=== PATIENT | male | born 1970 | race Caucasian/White ===

== ENCOUNTER → 2016-10-03 | Outpatient (CLI) | payer OTHER, MEDICAID ==
[~2016-10-03] MED LIST: CLAR10CA3 PO; PRIL40CA PO; PROA1AER INH; SYMB16INH INH; VITA200016 PO
[2016-10-03 11:03] LABS: ALBUMIN 3.6 GM/DL (3.2-5.2); ALBUMIN/GLOBULIN RATIO 1.38 (1.00-1.93); ALKALINE PHOSPHATASE 54 U/L (45-117); ALT/SGPT 28 U/L (12-78); ANION GAP 5 MEQ/L (8-16); AST/SGOT 17 U/L (15-37); BILIRUBIN,TOTAL 0.4 MG/DL (0.2-1.0); BLOOD UREA NITROGEN 12 MG/DL (7-18); CALCIUM LEVEL 8.8 MG/DL (8.5-10.1); CARBON DIOXIDE LEVEL 32 MEQ/L (21-32); CHLORIDE LEVEL 106 MEQ/L (98-107); CHOLESTEROL LEVEL 191 MG/DL (<200); CREATININE FOR GFR 0.96 MG/DL (0.70-1.30); GLOMERULAR FILTRATION RATE > 60.0 (>60); GLUCOSE, FASTING 122 MG/DL (70-105); POTASSIUM SERUM 4.3 MEQ/L (3.5-5.1); SODIUM LEVEL 143 MEQ/L (136-145); TOTAL PROTEIN 6.2 GM/DL (6.4-8.2); TRIGLYCERIDES LEVEL 110 MG/DL (<150)
== END ==
LOC: M LAB 09:48
PROVIDERS: ATTEND Student in an Organized Health Care Education/Training Program
DX: Z00.00 Encounter for general adult medical examination without abnormal findings (principal)

== ENCOUNTER 2017-01-12 16:26 | Emergency (ER) | payer MEDICAID, OTHER ==
[~2017-01-12] VITALS: Ht 172.7 cm; Wt 77.2 kg
[~2017-01-12 16:26] MED LIST changes: -PROA1AER INH; +PROAAER10 INH
[2017-01-12 17:21] LABS: BASO % 0.5 % (0.0-1.0); EOS # 0.3 K/mm3 (0.0-0.50); EOS % 3.3 % (0.0-3.0); LARGE UNSTAINED CELL # 0.2 K/mm3 (0.0-0.4); LARGE UNSTAINED CELL % 1.7 % (0.0-4.0); LYMPH # 3.5 K/mm3 (1.5-4.5); LYMPH % 36.3 % (24.0-44.0); MEAN CORPUSCULAR HEMOGLOBIN 33.9 pg (27.0-33.0); MEAN CORPUSCULAR VOLUME 91.2 fl (80.0-96.0); MONO # 0.5 K/mm3 (0.0-0.8); MONO % 4.8 % (0.0-5.0); NEUTROPHILS # 5.1 K/mm3 (1.8-7.7); NEUTROPHILS % 53.4 % (36.0-66.0); PLATELET COUNT, AUTOMATED 332 k/mm3 (150-450); WHITE BLOOD COUNT 9.5 K/mm3 (4.0-10.0)
[2017-01-12 17:24] LABS: MEAN CORPUSCULAR HGB CONC 35.4 g/dl (32.0-36.5)
[2017-01-12 17:50] LABS: ANION GAP 6 MEQ/L (8-16); BLOOD UREA NITROGEN 19 MG/DL (7-18); CALCIUM LEVEL 8.3 MG/DL (8.5-10.1); CARBON DIOXIDE LEVEL 31 MEQ/L (21-32); CHLORIDE LEVEL 104 MEQ/L (98-107); CREATININE FOR GFR 1.05 MG/DL (0.70-1.30); GLOMERULAR FILTRATION RATE > 60.0 (>60); GLUCOSE, FASTING 108 MG/DL (70-105); POTASSIUM SERUM 3.9 MEQ/L (3.5-5.1); SODIUM LEVEL 141 MEQ/L (136-145)
--- NOTE | 2017-01-12 17:51 | REP ---
Clinical: Chest pain . Comparison: 05/15/2016 . Findings: The mediastinum and cardiac silhouette are stable and within normal limits for portable technique. The lung isaacs are clear without acute consolidation, effusion, or pneumothorax. Skeletal structures are intact. Impression: No acute cardiopulmonary process appreciated. Signed by Cesar Townsend MD 01/12/2017 05:42 P
[2017-01-12] MEDS ORDERED: PANTOPRAZOLE 40MG INJ (PROTONIX) (C9113) IV ONE (18:00)
[2017-01-12] MEDS ORDERED: ASPIRIN 325 MG TAB PO ONE (18:00)
[2017-01-12] MEDS ORDERED: GI COCKTAIL 50ML BTL(HYOSCYAMINE/MAALOX/LIDOCAINE VISCOUS)(1:3:1) PO ONE (18:00)
[2017-01-12 18:16] LABS: ALBUMIN 3.4 GM/DL (3.2-5.2); ALKALINE PHOSPHATASE 58 U/L (45-117); ALT/SGPT 33 U/L (12-78); AST/SGOT 26 U/L (15-37); BILIRUBIN,DIRECT < 0.1 MG/DL (0.0-0.2); BILIRUBIN,TOTAL 0.4 MG/DL (0.2-1.0); TOTAL PROTEIN 6.5 GM/DL (6.4-8.2)
[2017-01-12 21:09] VITALS: BP 122/72
--- NOTE | 2017-01-13 07:32 | ECGEPIP ---
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
== END 2017-01-12 21:28 | disposition home or self-care (01) ==
LOC: M ED 16:26
DX: K21.9 Gastro-esophageal reflux disease without esophagitis (principal); J45.909 Unspecified asthma, uncomplicated; G47.33 Obstructive sleep apnea (adult) (pediatric); F32.9 Major depressive disorder, single episode, unspecified; Z87.891 Personal history of nicotine dependence

== ENCOUNTER 2017-02-06 18:57 | Emergency (ER) | payer OTHER ==
[~2017-02-06] VITALS: Ht 170.2 cm; Wt 77.3 kg
[2017-02-06] MEDS ORDERED: FLUO10CA8 PO (19:26)
[2017-02-06 21:34] VITALS: BP 141/72
--- NOTE | 2017-02-07 08:10 | REP ---
REASON: Trauma. PRIORS: None. Only Two views were obtained. The hand series consists of 4 views. If there has been trauma, a two view examination can not rule out a fracture. Limited AP and lateral views of the hand show no gross fracture. Signed by Jose Cruz Vincent DO 02/07/2017 10:37 A
== END 2017-02-06 21:34 | disposition home or self-care (01) ==
LOC: M ED 20:26
DX: S60.222A Contusion of left hand, initial encounter (principal); Z87.891 Personal history of nicotine dependence; W20.8XXA Other cause of strike by thrown, projected or falling object, initial encounter; Y92.099 Unspecified place in other non-institutional residence as the place of occurrence of the external cause; Y93.89 Activity, other specified; Y99.9 Unspecified external cause status

== ENCOUNTER 2017-04-09 14:37 | Emergency (ER) | payer MEDICAID, OTHER ==
[~2017-04-09] VITALS: Ht 172.7 cm; Wt 77.3 kg
[~2017-04-09 14:37] MED LIST changes: +FLUO10CA8 PO
[2017-04-09 14:38] VITALS: BP 153/87
--- NOTE | 2017-04-09 17:16 | REP ---
CT Head without contrast HISTORY: Trauma COMPARISON: None There is no intraparenchymal hemorrhage, acute infarct, mass or midline shift. The ventricular system is normal in appearance. There is no extra cerebral collection. There is no fracture. The visualized sinuses are clear. IMPRESSION: There is no intracranial lesion. Signed by Eren Handley MD 04/09/2017 05:08 P
[2017-04-09] MEDS ORDERED: POLYSPORIN TOPICAL OINTMENT 15GM As Ordered ONE (17:28)
[2017-04-09] MEDS ORDERED: POLYSPORIN TOPICAL OINTMENT 15GM TOP ONE (17:30)
== END 2017-04-09 17:41 | disposition home or self-care (01) ==
LOC: M ED 14:37
DX: S01.01XA Laceration without foreign body of scalp, initial encounter (principal); Z87.891 Personal history of nicotine dependence; W20.8XXA Other cause of strike by thrown, projected or falling object, initial encounter; Y92.096 Garden or yard of other non-institutional residence as the place of occurrence of the external cause; Y93.89 Activity, other specified; Y99.9 Unspecified external cause status

== ENCOUNTER → 2017-09-21 | Outpatient (REF) | payer OTHER | LOC: M SFHCPLAZ 15:17 | DX: J02.9 Acute pharyngitis, unspecified (principal) ==

== ENCOUNTER → 2017-09-30 | Outpatient (CLI) | payer OTHER | LOC: M LRY 11:30 | DX: J45.901 Unspecified asthma with (acute) exacerbation (principal) | CPT/HCPCS: 71046 ==

== ENCOUNTER → 2017-12-26 | Outpatient (CLI) | payer OTHER | LOC: M LRY 17:34 | DX: M43.6 Torticollis (principal); M50.30 Other cervical disc degeneration, unspecified cervical region | CPT/HCPCS: 72052 ==

== ENCOUNTER 2018-03-19 08:44 | Emergency (ER) | payer OTHER | END 2018-03-19 09:58 | disposition home or self-care (01) | LOC: M ED 08:44 | DX: M54.5 Low back pain (principal); J45.909 Unspecified asthma, uncomplicated; Z87.891 Personal history of nicotine dependence; Z79.899 Other long term (current) drug therapy | CPT/HCPCS: 99282 ==

== ENCOUNTER 2018-03-19 18:02 | Emergency (ER) | payer OTHER | END 2018-03-19 21:02 | disposition home or self-care (01) | LOC: M ED 18:02 | DX: M54.5 Low back pain (principal); J45.909 Unspecified asthma, uncomplicated; K21.9 Gastro-esophageal reflux disease without esophagitis; F17.200 Nicotine dependence, unspecified, uncomplicated | CPT/HCPCS: 99281 ==

== ENCOUNTER 2018-04-22 08:41 | Outpatient (RCR) | payer OTHER | END 2018-05-12 | LOC: M PT 08:41 | DX: M54.5 Low back pain (principal) | CPT/HCPCS: 97110 ==

== ENCOUNTER → 2019-05-20 | Outpatient (CLI) | payer OTHER ==
[~2019-05-20] MED LIST changes: +ROBA500T PO; +TYLE650T35 PO
== END ==
LOC: M LAB 12:35
PROVIDERS: ATTEND Student in an Organized Health Care Education/Training Program
DX: Z12.31 Encounter for screening mammogram for malignant neoplasm of breast (principal)

== ENCOUNTER 2019-11-10 11:03 | Emergency (ER) | payer MEDICAID, OTHER ==
[~2019-11-10] VITALS: Ht 170.2 cm; Wt 88.6 kg
[~2019-11-10 11:03] MED LIST changes: +FLUO10CA15 PO; -FLUO10CA8 PO
[2019-11-10] MEDS ORDERED: AZEL1SPR3 (11:13)
[2019-11-10] MEDS ORDERED: BUSP1TAB (11:13)
[2019-11-10] MEDS ORDERED: VENL75CA47 (11:13)
[2019-11-10] MEDS ORDERED: OMEP-221 (11:13)
[2019-11-10] MEDS ORDERED: CITA20TA6 (11:13)
[2019-11-10] MEDS ORDERED: ALL10TAB29 (11:13)
[2019-11-10] MEDS ORDERED: PROZ20CA11 (11:13)
[2019-11-10] MEDS ORDERED: COMBIVENT RESPIMAT 100-20MCG INHALER 4GM INH ONE (11:45)
[2019-11-10] MEDS ORDERED: methylPREDNISolone INJ 125 MG/2 ML VIAL (J2930) IV ONE (11:45)
[2019-11-10 12:24] LABS: BASO % 0.2 % (0.0-1.0); EOS % 0.2 % (0.0-3.0); HEMATOCRIT 45.3 % (42.0-52.0); HEMOGLOBIN 15.2 g/dl (13.5-17.5); LYMPH % 21.4 % (24.0-44.0); MEAN CORPUSCULAR HEMOGLOBIN 30.7 pg (27.0-33.0); MEAN CORPUSCULAR HGB CONC 33.6 g/dl (32.0-36.5); MEAN CORPUSCULAR VOLUME 91.5 fl (80.0-96.0); MONO # 0.5 10^3/uL (0.0-0.8); MONO % 5.5 % (0.0-5.0); NEUTROPHILS # 6.7 10^3/uL (1.5-8.5); NEUTROPHILS % 72.2 % (36.0-66.0); PLATELET COUNT, AUTOMATED 343 10^3/uL (150-450); RED BLOOD COUNT 4.95 10^6/uL (4.30-6.10); WHITE BLOOD COUNT 9.3 10^3/uL (4.0-10.0)
[2019-11-10 12:35] LABS: INR 0.97; PROTHROMBIN TIME 12.5 SECONDS (11.8-14.0)
[2019-11-10 13:06] LABS: ALBUMIN 3.9 GM/DL (3.2-5.2); ALT/SGPT 31 U/L (12-78); BILIRUBIN,DIRECT 0.1 MG/DL (0.0-0.2); BILIRUBIN,TOTAL 0.8 MG/DL (0.2-1.0); BLOOD UREA NITROGEN 13 MG/DL (7-18); CALCIUM LEVEL 9.6 MG/DL (8.5-10.1); CARBON DIOXIDE LEVEL 27 MEQ/L (21-32); CHLORIDE LEVEL 103 MEQ/L (98-107); CK-MB VALUE MASS < 1.0 NG/ML (<3.6); CPK CREATINE PHOSPHOKINASE 177 U/L (39-308); CREATININE FOR GFR 0.84 MG/DL (0.70-1.30); GLOMERULAR FILTRATION RATE > 60.0 (>60); GLUCOSE, FASTING 119 MG/DL (70-100); MB/CK RELATIVE INDEX 0.56 (< OR =4); POTASSIUM SERUM 4.5 MEQ/L (3.5-5.1); SODIUM LEVEL 137 MEQ/L (136-145); TOTAL PROTEIN 7.3 GM/DL (6.4-8.2); TROPONIN I < 0.02 NG/ML (< 0.10)
[2019-11-10 13:39] LABS: D-DIMER QUANT < 270.0 ng/ml (<500)
[2019-11-10] MEDS ORDERED: PRED20TA PO (13:51)
--- NOTE | 2019-11-10 13:54 | REP ---
CHEST, SINGLE VIEW: There is no evidence of acute infiltrate. No pleural effusion is seen. The heart is normal in size. The mediastinal silhouette is unremarkable. The visualized osseous structures are intact. IMPRESSION: No acute pulmonary disease. Electronically Signed by Rodolfo Haddad MD 11/10/2019 02:43 P
[2019-11-10 14:00] VITALS: BP 137/59
--- NOTE | 2019-11-11 01:55 | ECGEPIP ---
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
== END 2019-11-10 14:09 | disposition home or self-care (01) ==
LOC: M ED 11:03
DX: J45.901 Unspecified asthma with (acute) exacerbation (principal); K21.9 Gastro-esophageal reflux disease without esophagitis; F41.9 Anxiety disorder, unspecified; M54.9 Dorsalgia, unspecified; Z79.899 Other long term (current) drug therapy
CPT/HCPCS: 71045; 80048; 80076; 82550; 82553; 85025; 85379; 85610; 87486; 87581; 87633; 87798; 93005; 96374; 99284; J2930; U0002

== ENCOUNTER → 2019-12-01 | Outpatient (CLI) | payer OTHER ==
[~2019-12-01] MED LIST changes: +ALL10TAB29; +AZEL1SPR3; +BUSP1TAB; +CITA20TA6; +OMEP-221; +PRED20TA PO; +PROZ20CA11; +VENL75CA47
[2019-12-01 09:08] LABS: APPEARANCE, URINE CLEAR (CLEAR); BACTERIA, URINE AUTO NEGATIVE (NEGATIVE); BILIRUBIN, URINE AUTO NEGATIVE (NEGATIVE); BLOOD, URINE BLOOD NEGATIVE (NEGATIVE); COLOR, URINE YELLOW (YELLOW); GLUCOSE, URINE (UA) AUTO 1+ mg/dL (NEGATIVE); KETONE, URINE AUTO NEGATIVE (NEGATIVE); LEUKOCYTE ESTERASE, URINE AUTO NEGATIVE (NEGATIVE); MUCUS, URINE SMALL (NEGATIVE); NITRITE, URINE AUTO NEGATIVE (NEGATIVE); PROTEIN, URINE AUTO NEGATIVE (NEGATIVE); RBC, URINE AUTO 0 /HPF (0-3); SQUAMOUS EPITHELIAL CELL UR AU 0 /HPF (0-6); UROBILINOGEN, URINE AUTO 0.2 mg/dL (0.0-2.0); WBC, URINE AUTO 0 /HPF (0-3)
[2019-12-01 09:34] LABS: ALBUMIN 3.6 GM/DL (3.2-5.2); ALT/SGPT 36 U/L (12-78); BILIRUBIN,TOTAL 0.3 MG/DL (0.2-1.0); BLOOD UREA NITROGEN 16 MG/DL (7-18); CALCIUM LEVEL 9.1 MG/DL (8.5-10.1); CARBON DIOXIDE LEVEL 29 MEQ/L (21-32); CHLORIDE LEVEL 107 MEQ/L (98-107); CHOLESTEROL LEVEL 199 MG/DL (<200); CREATININE FOR GFR 0.97 MG/DL (0.70-1.30); GLOMERULAR FILTRATION RATE > 60.0 (>60); GLUCOSE, FASTING 53 MG/DL (70-100); GLUCOSE,RANDOM 53 MG/DL (LESS THAN 200); HDL CHOLESTEROL 50 MG/DL (>40); LDL CHOLESTEROL 101 MG/DL (<100); NON-HDL-C 149 MG/DL; POTASSIUM SERUM 3.7 MEQ/L (3.5-5.1); SODIUM LEVEL 143 MEQ/L (136-145); TOTAL PROTEIN 6.7 GM/DL (6.4-8.2); TRIGLYCERIDES LEVEL 240 MG/DL (<150)
[2019-12-02 11:04] LABS: HEPATITIS B SURFACE ANTIBODY NEGATIVE (POSITIVE)
[2019-12-02 11:16] LABS: HEPATITIS B SURFACE ANTIGEN NEGATIVE (NEGATIVE)
[2019-12-02 12:03] LABS: HIV 1&2 SCREEN CENTAUR NEGATIVE (NEGATIVE)
[2019-12-02 14:09] LABS: HEPATITIS A IgG TOTAL Negative (Negative); HEPATITIS B CORE ANTIBODY IGG Negative (Negative); TESTOSTERONE FREE (DIRECT) 4.6 pg/mL (6.8-21.5)
== END ==
LOC: M LAB 08:28
PROVIDERS: ATTEND Student in an Organized Health Care Education/Training Program
DX: N52.8 Other male erectile dysfunction (principal); Z72.51 High risk heterosexual behavior; Z20.6 Contact with and (suspected) exposure to human immunodeficiency virus [HIV]

== ENCOUNTER 2019-12-02 19:35 | Emergency (ER) | payer OTHER ==
[~2019-12-02] VITALS: Ht 172.7 cm; Wt 81.8 kg
--- NOTE | 2019-12-02 21:24 | REPVR ---
PROCEDURE INFORMATION: Exam: CT Head Without Contrast Exam date and time: 12/02/2019 8:59 PM Age: 49 years old Clinical indication: Dizziness TECHNIQUE: Imaging protocol: Computed tomography of the head without contrast. Radiation optimization: All CT scans at this facility use at least one of these dose optimization techniques: automated exposure control; mA and/or kV adjustment per patient size (includes targeted exams where dose is matched to clinical indication); or iterative reconstruction. COMPARISON: CT Head without contrast 04/09/2017 4:33 PM FINDINGS: Brain: Changes of chronic white matter microvascular disease have progressed since the prior exam. No hemorrhage or signs of a recent infarct. No mass effect. Ventricles: Normal. No ventriculomegaly. Bones/joints: Unremarkable. No acute fracture. Sinuses: Visualized sinuses are unremarkable. No fluid levels. Mastoid air cells: Visualized mastoid air cells are well aerated. Soft tissues: Unremarkable. IMPRESSION: No acute intracranial abnormality. Electronically signed by: Diaz Cota On 12/02/2019 21:24:51 PM
[2019-12-02 21:34] LABS: BASO % 0.3 % (0.0-1.0); EOS # 0.3 10^3/uL (0.0-0.5); EOS % 3.2 % (0.0-3.0); HEMATOCRIT 41.7 % (42.0-52.0); LYMPH # 2.9 10^3/uL (1.5-5.0); LYMPH % 33.5 % (24.0-44.0); MEAN CORPUSCULAR HEMOGLOBIN 31.1 pg (27.0-33.0); MEAN CORPUSCULAR HGB CONC 33.6 g/dl (32.0-36.5); MEAN CORPUSCULAR VOLUME 92.7 fl (80.0-96.0); MONO # 0.7 10^3/uL (0.0-0.8); MONO % 7.8 % (0.0-5.0); NEUTROPHILS # 4.8 10^3/uL (1.5-8.5); NEUTROPHILS % 54.5 % (36.0-66.0); PLATELET COUNT, AUTOMATED 316 10^3/uL (150-450); WHITE BLOOD COUNT 8.7 10^3/uL (4.0-10.0)
[2019-12-02 21:54] LABS: HEMOGLOBIN A1c 5.8 %
[2019-12-02 22:04] LABS: ALBUMIN 3.5 GM/DL (3.2-5.2); ALT/SGPT 33 U/L (12-78); BILIRUBIN,DIRECT 0.1 MG/DL (0.0-0.2); BILIRUBIN,TOTAL 0.3 MG/DL (0.2-1.0); CK-MB VALUE MASS 1.8 NG/ML (<3.6); CPK CREATINE PHOSPHOKINASE 162 U/L (39-308); FREE T4 1.11 NG/DL (0.76-1.46); LIPASE 130 U/L (73-393); MB/CK RELATIVE INDEX 1.11 (< OR =4); TOTAL PROTEIN 6.7 GM/DL (6.4-8.2); TROPONIN I < 0.02 NG/ML (< 0.10)
[2019-12-03] MEDS: POTASSIUM CHLORIDE 10 MEQ SR TABLET PO ONE (00:33)
[2019-12-03 00:36] VITALS: BP 123/81
--- NOTE | 2019-12-03 12:55 | ECGEPIP ---
[facility] - ED Test Date: 2019-12-02 Pat Name: FELTON MAGUIRE Department: Room: - Gender: Male Rn Procedure: TYRON : 1970 Requested By: JENISE ANN PA-C Order Number: [id number] Reading MD: Beena Chan Measurements Intervals [place] Rate: 89 P: 46 [place]: 172 QRS: 59 QRSD: 91 T: 35 QT: 362 QTc: 441 Interpretive Statements SINUS RHYTHM NONSPECIFIC T-WAVE ABNORMALITY DECREASED RATE 11/10/19 Electronically Signed on 12-03-2019 12:55:16 EDT by Beena Chan
== END 2019-12-03 00:38 | disposition home or self-care (01) ==
LOC: M ED 19:35
DX: R42 Dizziness and giddiness (principal); E87.6 Hypokalemia; J45.909 Unspecified asthma, uncomplicated; K21.9 Gastro-esophageal reflux disease without esophagitis; M54.9 Dorsalgia, unspecified; F41.9 Anxiety disorder, unspecified; F32.9 Major depressive disorder, single episode, unspecified

== ENCOUNTER → 2019-12-09 | Outpatient (CLI) | payer OTHER ==
[2019-12-09 15:21] LABS: FOLATE 23.7 NG/ML
[2019-12-16 11:07] LABS: LEAD BLOOD ADULT 1 ug/dL (0-4)
== END ==
LOC: M LAB 14:13
PROVIDERS: ATTEND Student in an Organized Health Care Education/Training Program
DX: R20.2 Paresthesia of skin (principal)

== ENCOUNTER → 2019-12-10 | Outpatient (CLI) | payer OTHER | LOC: M LAB 09:45 ==

== ENCOUNTER → 2019-12-22 | Outpatient (CLI) | payer OTHER ==
[2019-12-22 14:52] LABS: FOLATE > 24.0 NG/ML; VITAMIN B12 LEVEL 436 PG/ML
[2019-12-28 08:09] LABS: LEAD BLOOD ADULT <1 ug/dL (0-4)
== END ==
LOC: M LAB 12:55
DX: R20.2 Paresthesia of skin (principal); E87.6 Hypokalemia

== ENCOUNTER → 2019-12-23 | Outpatient (CLI) | payer OTHER | LOC: M LAB 06:40 | DX: R20.2 Paresthesia of skin (principal); E87.6 Hypokalemia ==

== ENCOUNTER → 2020-01-18 | Outpatient (REF) | payer OTHER ==
[~2020-01-18] MED LIST changes: +ACET650T61 PO; -ALL10TAB29; +CETI-24; -FLUO10CA15 PO; +FLUO10CA16 PO; -TYLE650T35 PO
[2020-01-18 13:34] LABS: BLOOD UREA NITROGEN 14 MG/DL (7-18); CALCIUM LEVEL 9.4 MG/DL (8.5-10.1); CARBON DIOXIDE LEVEL 31 MEQ/L (21-32); CHLORIDE LEVEL 105 MEQ/L (98-107); GLOMERULAR FILTRATION RATE > 60.0 (>60); GLUCOSE, FASTING 94 MG/DL (70-100); POTASSIUM SERUM 4.5 MEQ/L (3.5-5.1); SODIUM LEVEL 140 MEQ/L (136-145)
[2020-01-18 13:47] LABS: FOLLICLE STIMULATING HORMONE 6.6 mIU/mL (1.4-18.1); LUTEINIZING HORMONE 5.2 mIU/mL (1.5-9.3)
[2020-01-18 16:07] LABS: CHLAMYDIA DNA AMPLIFICATION NEGATIVE (NEGATIVE); GC DNA AMPLIFICATION NEGATIVE (NEGATIVE)
[2020-01-22 03:07] LABS: CHLAMYDIA PHARYNGEAL APTIMA Negative (Negative); GC PHARYNGEAL APTIMA Negative (Negative)
[2020-01-22 04:06] LABS: CHLAMYDIA RECTAL APTIMA Negative (Negative); GC RECTAL APTIMA Negative (Negative)
== END ==
LOC: M SFHCPLAZ 10:06
PROVIDERS: ATTEND Family Medicine
DX: E87.6 Hypokalemia (principal); E29.1 Testicular hypofunction; Z72.51 High risk heterosexual behavior

== ENCOUNTER → 2020-01-25 | Outpatient (CLI) | payer OTHER ==
[2020-01-25 16:44] LABS: CORTISOL AM 3.2 UG/DL (4.3-22.4); PROLACTIN 6.7 NG/ML (2.1-17.7)
[2020-01-28 05:07] LABS: TESTOSTERONE FREE (DIRECT) 3.1 pg/mL (6.8-21.5); TRANSFERRIN 280 mg/dL (177-329)
== END ==
LOC: M LAB 15:41
PROVIDERS: ATTEND Student in an Organized Health Care Education/Training Program
DX: E29.1 Testicular hypofunction (principal)

== ENCOUNTER → 2020-02-08 | Outpatient (REF) | payer OTHER | LOC: M SFHCPLAZ 10:48 | PROVIDERS: ATTEND Student in an Organized Health Care Education/Training Program | DX: E87.6 Hypokalemia (principal) ==

== ENCOUNTER → 2020-03-20 | Outpatient (REF) | payer OTHER ==
[2020-03-20 13:08] LABS: ALBUMIN 3.7 GM/DL (3.2-5.2); ALT/SGPT 28 U/L (12-78); BILIRUBIN,TOTAL 0.3 MG/DL (0.2-1.0); BLOOD UREA NITROGEN 15 MG/DL (7-18); CARBON DIOXIDE LEVEL 30 MEQ/L (21-32); CHLORIDE LEVEL 106 MEQ/L (98-107); CREATININE FOR GFR 1.01 MG/DL (0.70-1.30); GLOMERULAR FILTRATION RATE > 60.0 (>60); GLUCOSE, FASTING 102 MG/DL (70-100); POTASSIUM SERUM 4.6 MEQ/L (3.5-5.1); SODIUM LEVEL 140 MEQ/L (136-145); TOTAL PROTEIN 6.8 GM/DL (6.4-8.2)
[2020-03-20 13:18] LABS: HEPATITIS B SURFACE ANTIBODY POSITIVE (POSITIVE)
[2020-03-20 13:56] LABS: HIV 1&2 SCREEN CENTAUR NEGATIVE (NEGATIVE)
[2020-03-20 15:27] LABS: CHLAMYDIA DNA AMPLIFICATION NEGATIVE (NEGATIVE); GC DNA AMPLIFICATION NEGATIVE (NEGATIVE)
[2020-03-22 01:07] LABS: CHLAMYDIA PHARYNGEAL APTIMA Negative (Negative); GC PHARYNGEAL APTIMA Negative (Negative)
[2020-03-23 03:07] LABS: CHLAMYDIA RECTAL APTIMA Negative (Negative); GC RECTAL APTIMA Negative (Negative)
== END ==
LOC: M PLALAB 08:47
PROVIDERS: ATTEND Internal Medicine Infectious Disease
DX: Z11.3 Encounter for screening for infections with a predominantly sexual mode of transmission (principal)

== ENCOUNTER → 2020-07-19 | Outpatient (CLI) | payer OTHER | LOC: M LABSMTC 13:42 | PROVIDERS: ATTEND Pediatrics | DX: Z20.822 Contact with and (suspected) exposure to COVID-19 (principal) ==

== ENCOUNTER → 2020-08-09 | Outpatient (REF) | payer OTHER ==
[2020-08-09 15:33] LABS: HEMOGLOBIN A1c 5.7 %
[2020-08-09 15:55] LABS: CORTISOL AM 4.5 UG/DL (4.3-22.4)
== END ==
LOC: M PLALAB 14:10
PROVIDERS: ATTEND Student in an Organized Health Care Education/Training Program
DX: R53.82 Chronic fatigue, unspecified (principal); R20.0 Anesthesia of skin

== ENCOUNTER → 2020-09-07 | Outpatient (CLI) | payer OTHER ==
--- NOTE | 2020-09-07 14:56 | REP ---
INDICATION: PAIN ANTERIOR SHOULDER. COMPARISON: None. TECHNIQUE: Three views of the right shoulder are presented. FINDINGS: The right glenohumeral and acromioclavicular joints are normally aligned. There is periarticular soft tissue calcification along the inferior aspect of the glenoid and adjacent to the proximal humerus consistent with calcific tendinitis or bursitis changes. No erosive changes seen. No fracture is noted. IMPRESSION: Periarticular soft tissue calcifications noted in several locations consistent with calcific tendinitis or bursitis. Otherwise negative. <Electronically signed by Rigo Duarte > 09/07/20 [id number]
== END ==
LOC: M WUC 14:33
PROVIDERS: ATTEND Nurse Practitioner Family
DX: M25.511 Pain in right shoulder (principal)

== ENCOUNTER → 2020-09-14 | Outpatient (CLI) | payer OTHER ==
--- NOTE | 2020-09-14 12:35 | REP ---
INDICATION: ANESTHESIA OF SKIN COMPARISON: 07/29/2015 TECHNIQUE: AP, lateral, bilateral oblique, and coned-down views of the lumbar spine. FINDINGS: Alignment and lordosis maintained. Vertebral bodies are intact. No acute fracture/compression injury or subluxation. No obvious spondylolysis or spondylolisthesis. Moderate/early advanced multilevel degenerative changes include endplate sclerosis, minimal disc space narrowing, osteophytosis and mild facet hypertrophy. IMPRESSION: Moderate/early advanced multilevel degenerative spondylosis. No acute fracture/compression injury or subluxation. Findings are relatively similar to prior examination. <Electronically signed by Cesar Townsend > 09/14/20 [id number]
== END ==
LOC: M RAD 11:53
PROVIDERS: ATTEND Student in an Organized Health Care Education/Training Program
DX: R20.0 Anesthesia of skin (principal); M51.9 Unspecified thoracic, thoracolumbar and lumbosacral intervertebral disc disorder

== ENCOUNTER 2020-10-26 19:40 | Emergency (ER) | payer OTHER ==
[~2020-10-26] VITALS: Ht 167.6 cm; Wt 92.0 kg
[2020-10-26] MEDS ORDERED: LEVO750T14 PO (19:52)
--- NOTE | 2020-10-26 21:40 | REPVR ---
PROCEDURE INFORMATION: Exam: XR Chest Exam date and time: 10/26/2020 9:23 PM Age: 50 years old Clinical indication: Cough and dyspnea; Additional info: Dyspnea/cough TECHNIQUE: Imaging protocol: XR of the chest. Views: 1 view. COMPARISON: NM PORTABLE CHEST X-RAY 11/10/2019 12:11 PM FINDINGS: Lungs: Unremarkable. No consolidation. Pleural spaces: Unremarkable. No pleural effusion. No pneumothorax. Heart/Mediastinum: Unremarkable. No cardiomegaly. Bones/joints: The spine demonstrates mild degenerative changes. IMPRESSION: No acute findings. Electronically signed by: Josue Wayne On 10/26/2020 21:40:42 PM
[2020-10-26 22:03] LABS: BASO # 0.1 10^3/uL (0.0-0.2); BASO % 0.4 % (0.0-1.0); EOS # 0.4 10^3/uL (0.0-0.5); EOS % 3.3 % (0.0-3.0); HEMATOCRIT 49.1 % (42.0-52.0); HEMOGLOBIN 16.7 g/dl (13.5-17.5); LYMPH # 3.7 10^3/uL (1.5-5.0); LYMPH % 33.5 % (24.0-44.0); MEAN CORPUSCULAR HEMOGLOBIN 32.2 pg (27.0-33.0); MEAN CORPUSCULAR VOLUME 94.6 fl (80.0-96.0); MONO # 0.8 10^3/uL (0.0-0.8); MONO % 6.7 % (2.0-8.0); NEUTROPHILS # 6.1 10^3/uL (1.5-8.5); NEUTROPHILS % 54.8 % (36.0-66.0); PLATELET COUNT, AUTOMATED 325 10^3/uL (150-450); RED BLOOD COUNT 5.19 10^6/uL (4.30-6.10); WHITE BLOOD COUNT 11.1 10^3/uL (4.0-10.0)
[2020-10-26 22:22] LABS: ALBUMIN 3.6 GM/DL (3.2-5.2); ALT/SGPT 28 U/L (12-78); BILIRUBIN,DIRECT 0.1 MG/DL (0.0-0.2); BILIRUBIN,TOTAL 0.5 MG/DL (0.2-1.0); BLOOD UREA NITROGEN 12 MG/DL (7-18); CALCIUM LEVEL 9.4 MG/DL (8.5-10.1); CARBON DIOXIDE LEVEL 32 MEQ/L (21-32); CHLORIDE LEVEL 102 MEQ/L (98-107); CREATININE FOR GFR 1.09 MG/DL (0.70-1.30); GLOMERULAR FILTRATION RATE > 60.0 (>56); GLUCOSE, FASTING 101 MG/DL (70-100); POTASSIUM SERUM 3.7 MEQ/L (3.5-5.1); SODIUM LEVEL 138 MEQ/L (136-145); TOTAL PROTEIN 6.8 GM/DL (6.4-8.2)
[2020-10-26 22:30] VITALS: BP 116/75
--- NOTE | 2020-10-29 09:09 | ECGEPIP ---
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
== END 2020-10-26 22:42 | disposition home or self-care (01) ==
LOC: M ED 19:40
DX: J06.9 Acute upper respiratory infection, unspecified (principal); J45.909 Unspecified asthma, uncomplicated; Z79.899 Other long term (current) drug therapy; F17.210 Nicotine dependence, cigarettes, uncomplicated

== ENCOUNTER 2021-02-20 12:42 | Emergency (ER) | payer OTHER ==
[~2021-02-20] VITALS: Ht 162.6 cm; Wt 87.6 kg
[~2021-02-20 12:42] MED LIST changes: +LEVO750T14 PO
[2021-02-20 12:49] VITALS: BP 108/64
== END 2021-02-20 15:06 | disposition left against medical advice (07) ==
LOC: M ED 12:42
DX: Z53.21 Procedure and treatment not carried out due to patient leaving prior to being seen by health care provider (principal)

== ENCOUNTER 2021-02-28 14:07 | Emergency (ER) | payer OTHER ==
[~2021-02-28] VITALS: Ht 162.6 cm; Wt 88.2 kg
[2021-02-28 17:20] LABS: AMPHETAMINES LEVEL URINE NEGATIVE (NEGATIVE); BARBITURATES URINE NEGATIVE (NEGATIVE); BENZODIAZEPINES URINE NEGATIVE (NEGATIVE); CANNABINOIDS URINE POSITIVE (NEGATIVE); COCAINE METABOLITE URINE NEGATIVE (NEGATIVE); METHADONE URINE NEGATIVE (NEGATIVE); OPIATES URINE NEGATIVE (NEGATIVE); PHENCYCLIDINE URINE NEGATIVE (NEGATIVE)
--- NOTE | 2021-02-28 20:42 | REPVR ---
PROCEDURE INFORMATION: Exam: MR Head Without Contrast Exam date and time: 02/28/2021 7:47 PM Age: 50 years old Clinical indication: Altered mental status/memory loss; Additional info: Confusion, amnesia TECHNIQUE: Imaging protocol: MR of the head without contrast. COMPARISON: CT Head without contrast 12/02/2019 8:55 PM FINDINGS: Examination is motion limited. Ventricles demonstrate normal size and configuration. Major vascular flow voids at the skull base are preserved. No extra-axial fluid collection. No midline shift or intracranial mass effect. There is nonspecific white matter gliosis, probable chronic microvascular ischemia. No pathologic susceptibility or cerebral edema. No diffusion restriction. [id number] paranasal sinus disease. Small bilateral mastoid effusions. IMPRESSION: No acute intracranial abnormality. Electronically signed by: Mehrdad Pabon On 02/28/2021 20:42:19 PM
--- NOTE | 2021-02-28 20:44 | REPVR ---
PROCEDURE INFORMATION: Exam: MRA Head Without Contrast; Arteriography Exam date and time: 02/28/2021 7:47 PM Age: 50 years old Clinical indication: Cognitive deficit and memory loss; Altered mental status; Type not specified; Additional info: Confusion, amnesia TECHNIQUE: Imaging protocol: Magnetic resonance angiography head without contrast. Exam focused on the arteries. COMPARISON: CT Head without contrast 12/02/2019 8:55 PM FINDINGS: ANTERIOR CIRCULATION: Right internal carotid artery: Intracranial segment is patent with no significant stenosis. No aneurysm. Right middle cerebral artery: No occlusion or significant stenosis. No aneurysm. Right anterior cerebral artery: No occlusion or significant stenosis. No aneurysm. Left internal carotid artery: Intracranial segment is patent with no significant stenosis. No aneurysm. Left middle cerebral artery: No occlusion or significant stenosis. No aneurysm. Left anterior cerebral artery: No occlusion or significant stenosis. No aneurysm. POSTERIOR CIRCULATION: Right vertebral artery: No occlusion or significant stenosis. No aneurysm. Left vertebral artery: No occlusion or significant stenosis. No aneurysm. Basilar artery: No occlusion or significant stenosis. No aneurysm. Right posterior cerebral artery: origin of the right posterior cerebral artery. Left posterior cerebral artery: No occlusion or significant stenosis. No aneurysm. IMPRESSION: No hemodynamically significant stenosis or large vessel occlusion. Electronically signed by: Mehrdad Pabon On 02/28/2021 20:44:11 PM
[2021-02-28] MEDS ORDERED: HYDR50TA70 PO (20:49)
[2021-02-28 20:58] VITALS: BP 109/67
== END 2021-02-28 21:11 | disposition home or self-care (01) ==
LOC: M ED 14:07
DX: F33.9 Major depressive disorder, recurrent, unspecified (principal); F41.9 Anxiety disorder, unspecified; R41.0 Disorientation, unspecified; J45.909 Unspecified asthma, uncomplicated; G47.33 Obstructive sleep apnea (adult) (pediatric); Z79.899 Other long term (current) drug therapy; F12.20 Cannabis dependence, uncomplicated; F17.210 Nicotine dependence, cigarettes, uncomplicated

== ENCOUNTER → 2021-05-28 | Outpatient (CLI) | payer OTHER ==
[~2021-05-28] MED LIST changes: +HYDR50TA70 PO
--- NOTE | 2021-05-28 08:24 | REP ---
INDICATION: UBILICAL HERNIA COMPARISON: None. TECHNIQUE: Limited B-mode directed ultrasound examination using linear high-frequency transducer. FINDINGS: Directed ultrasound examination of the periumbilical region demonstrates no obvious abnormality by ultrasound. Specifically no evidence for periumbilical hernia, fluid or mass lesion identified. IMPRESSION: Unremarkable examination. No evidence for periumbilical hernia. <Electronically signed by Cesar Townsend > 05/28/21 [id number]
== END ==
LOC: M RAD 07:33
PROVIDERS: ATTEND Student in an Organized Health Care Education/Training Program
DX: K42.9 Umbilical hernia without obstruction or gangrene (principal)

== ENCOUNTER 2021-06-10 01:57 | Emergency (ER) | payer OTHER ==
[~2021-06-10] VITALS: Ht 167.6 cm; Wt 87.8 kg
[~2021-06-10 01:57] MED LIST changes: -FLUO10CA16 PO; +FLUO10CA18 PO; -OMEP-221; +OMEP40CA5
[2021-06-10 07:15] LABS: RSV AMPLIFICATION NEGATIVE (NEGATIVE)
[2021-06-10 07:27] VITALS: O2SAT 95
[2021-06-10 07:40] LABS: BASO % 0.3 % (0.0-1.0); EOS # 0.4 10^3/uL (0.0-0.5); EOS % 3.5 % (0.0-3.0); HEMATOCRIT 47.2 % (42.0-52.0); HEMOGLOBIN 16.1 g/dl (13.5-17.5); LYMPH # 3.2 10^3/uL (1.5-5.0); LYMPH % 28.1 % (24.0-44.0); MEAN CORPUSCULAR HEMOGLOBIN 32.5 pg (27.0-33.0); MEAN CORPUSCULAR HGB CONC 34.1 g/dl (32.0-36.5); MEAN CORPUSCULAR VOLUME 95.2 fl (80.0-96.0); MONO # 0.8 10^3/uL (0.0-0.8); MONO % 7.3 % (2.0-8.0); NEUTROPHILS # 6.8 10^3/uL (1.5-8.5); NEUTROPHILS % 60.4 % (36.0-66.0); PLATELET COUNT, AUTOMATED 314 10^3/uL (150-450); RED BLOOD COUNT 4.96 10^6/uL (4.30-6.10); WHITE BLOOD COUNT 11.3 10^3/uL (4.0-10.0)
[2021-06-10 08:01] LABS: ALBUMIN 3.3 GM/DL (3.2-5.2); ALT/SGPT 23 U/L (12-78); BILIRUBIN,TOTAL 0.7 MG/DL (0.2-1.0); BLOOD UREA NITROGEN 10 MG/DL (7-18); CALCIUM LEVEL 8.9 MG/DL (8.5-10.1); CARBON DIOXIDE LEVEL 27 MEQ/L (21-32); CHLORIDE LEVEL 106 MEQ/L (98-107); CREATININE FOR GFR 0.82 MG/DL (0.70-1.30); GLOMERULAR FILTRATION RATE > 60.0 (>56); GLUCOSE, FASTING 106 MG/DL (70-100); SODIUM LEVEL 141 MEQ/L (136-145); TOTAL PROTEIN 6.7 GM/DL (6.4-8.2)
[2021-06-10 08:02] LABS: CK-MB VALUE MASS < 1.0 NG/ML (<3.6); CPK CREATINE PHOSPHOKINASE 78 U/L (39-308); MB/CK RELATIVE INDEX 1.28 (< OR =4)
[2021-06-10] MEDS ORDERED: CEFD300CAP PO (08:54)
[2021-06-10] MEDS ORDERED: FLON1SPR NARES (08:55)
[2021-06-10 09:00] VITALS: BP 121/71
== END 2021-06-10 09:03 | disposition home or self-care (01) ==
LOC: M ED 01:57
DX: R09.81 Nasal congestion (principal); J01.90 Acute sinusitis, unspecified; J30.2 Other seasonal allergic rhinitis; R07.89 Other chest pain; J45.909 Unspecified asthma, uncomplicated; F33.9 Major depressive disorder, recurrent, unspecified; F41.9 Anxiety disorder, unspecified; Z79.899 Other long term (current) drug therapy; F17.210 Nicotine dependence, cigarettes, uncomplicated; F12.20 Cannabis dependence, uncomplicated

== ENCOUNTER → 2021-07-03 | Outpatient (REF) | payer OTHER ==
[~2021-07-03] MED LIST changes: +CEFD300CAP PO; +FLON1SPR NARES; +FLUO10CA16 PO; -FLUO10CA18 PO; +OMEP-221; -OMEP40CA5
== END ==
LOC: M SFHCPLAZ 12:48
PROVIDERS: ATTEND Student in an Organized Health Care Education/Training Program
DX: R05.9 Cough, unspecified (principal)

== ENCOUNTER → 2021-08-15 | Outpatient (CLI) | payer OTHER ==
[~2021-08-15] MED LIST changes: -FLUO10CA16 PO; +FLUO10CA18 PO; -OMEP-221; +OMEP40CA5
== END ==
LOC: M PLAIMG 08:54
PROVIDERS: ATTEND Otolaryngology
DX: H90.3 Sensorineural hearing loss, bilateral (principal)

== ENCOUNTER → 2021-11-15 | Outpatient (REF) | payer OTHER ==
[2021-11-18 12:28] LABS: GC DNA AMPLIFICATION NEGATIVE (NEGATIVE)
== END ==
LOC: M SFHCPLAZ 09:54
PROVIDERS: ATTEND Family Medicine
DX: Z72.52 High risk homosexual behavior (principal)

== ENCOUNTER → 2021-11-21 | Outpatient (CLI) | payer OTHER ==
[2021-11-21 13:33] LABS: HEMATOCRIT 50.1 % (42.0-52.0); HEMOGLOBIN 16.9 g/dl (13.5-17.5); MEAN CORPUSCULAR HEMOGLOBIN 33.5 pg (27.0-33.0); MEAN CORPUSCULAR HGB CONC 33.7 g/dl (32.0-36.5); MEAN CORPUSCULAR VOLUME 99.2 fl (80.0-96.0); PLATELET COUNT, AUTOMATED 295 10^3/uL (150-450); RED BLOOD COUNT 5.05 10^6/uL (4.30-6.10); WHITE BLOOD COUNT 7.8 10^3/uL (4.0-10.0)
[2021-11-21 14:24] LABS: ALBUMIN 3.4 GM/DL (3.2-5.2); ALT/SGPT 16 U/L (12-78); BILIRUBIN,TOTAL 0.9 MG/DL (0.2-1.0); BLOOD UREA NITROGEN 9 MG/DL (7-18); CARBON DIOXIDE LEVEL 31 MEQ/L (21-32); CHLORIDE LEVEL 106 MEQ/L (98-107); CREATININE FOR GFR 1.01 MG/DL (0.70-1.30); GLOMERULAR FILTRATION RATE > 60.0 (>56); GLUCOSE, FASTING 136 MG/DL (70-100); POTASSIUM SERUM 3.8 MEQ/L (3.5-5.1); SODIUM LEVEL 139 MEQ/L (136-145); TOTAL PROTEIN 6.3 GM/DL (6.4-8.2)
[2021-11-21 14:25] LABS: HEPATITIS B SURFACE ANTIGEN NEGATIVE (NEGATIVE)
[2021-11-21 14:52] LABS: HEPATITIS C VIRUS ABY INDEX 0.1 INDEX (<0.8)
[2021-11-21 14:53] LABS: HEPATITIS B CORE ANTIBODY IGM NEGATIVE (NEGATIVE); HIV 1&2 SCREEN CENTAUR NEGATIVE (NEGATIVE)
[2021-11-21 16:04] LABS: GC DNA AMPLIFICATION NEGATIVE (NEGATIVE)
[2021-11-22 23:07] LABS: HSV TYPE I IgG SPECIFIC <0.91 index (0.00-0.90); HSV TYPE II IgG SPECIFIC <0.91 index (0.00-0.90)
== END ==
LOC: M PLALAB 11:00
PROVIDERS: ATTEND Family Medicine
DX: F40.00 Agoraphobia, unspecified (principal); F17.209 Nicotine dependence, unspecified, with unspecified nicotine-induced disorders; F12.90 Cannabis use, unspecified, uncomplicated; F10.10 Alcohol abuse, uncomplicated; Z72.52 High risk homosexual behavior; Z13.89 Encounter for screening for other disorder

== ENCOUNTER 2021-12-26 07:12 | Emergency (ER) | payer OTHER, MEDICAID ==
[~2021-12-26] VITALS: Ht 162.6 cm; Wt 78.6 kg
[2021-12-26] MEDS ORDERED: LEXA1TAB2 (07:40)
[2021-12-26] MEDS ORDERED: BUPR15TASR (07:40)
[2021-12-26] MEDS ORDERED: CETIRIZINE (ZyrTEC) 10 MG TAB PO ONE (08:40)
[2021-12-26 09:32] LABS: BASO # 0.1 10^3/uL (0.0-0.2); BASO % 0.5 % (0.0-1.0); EOS # 0.3 10^3/uL (0.0-0.5); EOS % 3.5 % (0.0-3.0); HEMATOCRIT 47.7 % (42.0-52.0); HEMOGLOBIN 16.7 g/dl (13.5-17.5); LYMPH # 2.5 10^3/uL (1.5-5.0); LYMPH % 26.5 % (24.0-44.0); MEAN CORPUSCULAR HEMOGLOBIN 34.2 pg (27.0-33.0); MEAN CORPUSCULAR VOLUME 97.5 fl (80.0-96.0); MONO # 0.8 10^3/uL (0.0-0.8); MONO % 8.4 % (2.0-8.0); NEUTROPHILS # 5.8 10^3/uL (1.5-8.5); NEUTROPHILS % 60.6 % (36.0-66.0); PLATELET COUNT, AUTOMATED 284 10^3/uL (150-450); RED BLOOD COUNT 4.89 10^6/uL (4.30-6.10); WHITE BLOOD COUNT 9.6 10^3/uL (4.0-10.0)
[2021-12-26 09:51] LABS: AMPHETAMINES LEVEL URINE NEGATIVE (NEGATIVE); BARBITURATES URINE NEGATIVE (NEGATIVE); BENZODIAZEPINES URINE NEGATIVE (NEGATIVE); CANNABINOIDS URINE POSITIVE (NEGATIVE); COCAINE METABOLITE URINE NEGATIVE (NEGATIVE); METHADONE URINE NEGATIVE (NEGATIVE); OPIATES URINE NEGATIVE (NEGATIVE); PHENCYCLIDINE URINE NEGATIVE (NEGATIVE)
[2021-12-26 09:58] LABS: ACETAMINOPHEN LEVEL < 2.0 UG/ML (10.0-30.0); ALBUMIN 3.3 GM/DL (3.2-5.2); ALT/SGPT 23 U/L (12-78); BILIRUBIN,DIRECT 0.2 MG/DL (0.0-0.2); BILIRUBIN,TOTAL 0.5 MG/DL (0.2-1.0); BLOOD UREA NITROGEN 8 MG/DL (7-18); CALCIUM LEVEL 9.2 MG/DL (8.5-10.1); CARBON DIOXIDE LEVEL 27 MEQ/L (21-32); CHLORIDE LEVEL 106 MEQ/L (98-107); ETHYL ALCOHOL (ETHANOL) < 0.003 % (0.000-0.010); GLOMERULAR FILTRATION RATE > 60.0 (>56); GLUCOSE, FASTING 97 MG/DL (70-100); POTASSIUM SERUM 4.1 MEQ/L (3.5-5.1); SALICYLATE LEVEL 5.7 MG/DL (5.0-30.0); SODIUM LEVEL 140 MEQ/L (136-145); TOTAL PROTEIN 6.3 GM/DL (6.4-8.2)
[2021-12-26 09:59] LABS: RSV AMPLIFICATION NEGATIVE (NEGATIVE)
[2021-12-26 15:14] VITALS: BP 101/59
== END 2021-12-26 15:16 | disposition home or self-care (01) ==
LOC: M ED 07:12
DX: F32.A Depression, unspecified (principal); J30.2 Other seasonal allergic rhinitis; F40.00 Agoraphobia, unspecified; F43.22 Adjustment disorder with anxiety; F12.10 Cannabis abuse, uncomplicated; G47.30 Sleep apnea, unspecified; F17.210 Nicotine dependence, cigarettes, uncomplicated; Z79.899 Other long term (current) drug therapy

== ENCOUNTER 2022-01-02 10:43 | Inpatient (IN) | payer OTHER, MEDICAID ==
[~2022-01-02] VITALS: Ht 162.6 cm; Wt 80.8 kg
[~2022-01-02 10:43] MED LIST changes: -AZEL1SPR3; +AZEL1SPR3 NARES; +BUPR15TASR PO; +LEXA1TAB2
[2022-01-02 11:34] LABS: HEMOGLOBIN 17.5 g/dl (13.5-17.5); MEAN CORPUSCULAR HEMOGLOBIN 32.9 pg (27.0-33.0); MEAN CORPUSCULAR HGB CONC 34.3 g/dl (32.0-36.5); MEAN CORPUSCULAR VOLUME 95.9 fl (80.0-96.0); PLATELET COUNT, AUTOMATED 342 10^3/uL (150-450); RED BLOOD COUNT 5.32 10^6/uL (4.30-6.10); WHITE BLOOD COUNT 11.3 10^3/uL (4.0-10.0)
[2022-01-02 12:07] LABS: RSV AMPLIFICATION NEGATIVE (NEGATIVE)
[2022-01-02 12:49] LABS: AMPHETAMINES LEVEL URINE NEGATIVE (NEGATIVE); BARBITURATES URINE NEGATIVE (NEGATIVE); BENZODIAZEPINES URINE NEGATIVE (NEGATIVE); CANNABINOIDS URINE POSITIVE (NEGATIVE); COCAINE METABOLITE URINE NEGATIVE (NEGATIVE); METHADONE URINE NEGATIVE (NEGATIVE); OPIATES URINE NEGATIVE (NEGATIVE); PHENCYCLIDINE URINE NEGATIVE (NEGATIVE)
[2022-01-02 12:58] LABS: ALBUMIN 3.9 GM/DL (3.2-5.2); ALT/SGPT 24 U/L (12-78); BILIRUBIN,DIRECT 0.3 MG/DL (0.0-0.2); BILIRUBIN,TOTAL 0.7 MG/DL (0.2-1.0); BLOOD UREA NITROGEN 8 MG/DL (7-18); CALCIUM LEVEL 9.9 MG/DL (8.5-10.1); CARBON DIOXIDE LEVEL 22 MEQ/L (21-32); CHLORIDE LEVEL 105 MEQ/L (98-107); CREATININE FOR GFR 1.21 MG/DL (0.70-1.30); ETHYL ALCOHOL (ETHANOL) < 0.003 % (0.000-0.010); GLOMERULAR FILTRATION RATE > 60.0 (>56); GLUCOSE, FASTING 155 MG/DL (70-100); POTASSIUM SERUM 3.9 MEQ/L (3.5-5.1); SALICYLATE LEVEL 5.8 MG/DL (5.0-30.0); SODIUM LEVEL 139 MEQ/L (136-145); TOTAL PROTEIN 7.1 GM/DL (6.4-8.2)
[2022-01-02] MEDS ORDERED: diphenhydrAMINE 25MG CAP PO PRN (15:03)
[2022-01-02] MEDS ORDERED: OLANZapine 5 MG TAB PO PRN (15:03)
[2022-01-02 16:42] LABS: ACETAMINOPHEN LEVEL < 2.0 UG/ML (0.0-30.0)
[2022-01-02] MEDS ORDERED: LEXA1TAB2 PO (16:48)
[2022-01-02] MEDS ORDERED: FLUT50SP33 NARES (16:48)
[2022-01-02] MEDS ORDERED: COMMENTS (16:49)
[2022-01-02] MEDS ORDERED: HOME MED LIST COMPLETE! XX SCH (16:50)
[2022-01-02] MEDS ORDERED: OLANZapine 10 MG TAB PO PRN (21:20)
[2022-01-02] MEDS ORDERED: ALBUTEROL 90 MCG/ACT 8GM HFA INHALER INH PRN (21:40)
[2022-01-02 21:48] VITALS: BP 133/78
[2022-01-03 06:17] VITALS: BP 151/79
[2022-01-03] MEDS ORDERED: ESCITALOPRAM OXALATE 10 MG TAB (LEXAPRO) PO SCH (09:00)
[2022-01-03] MEDS ORDERED: FLUBLOK(EGG FREE)(QUAD)INFLUENZA VACC 0.5ML SYRINGE 18YRS & OLDER IM.IMMUN ONE (09:00)
[2022-01-03] MEDS: ESCITALOPRAM OXALATE 5MG TABLET (LEXAPRO) PO SCH (09:35)
[2022-01-03] MEDS: buPROPion **SR TABLET** (ZYBAN) 150MG PO SCH (09:35)
[2022-01-03] MEDS: AZELASTINE 137MCG NASAL SPY 30 ML (ASTELIN) SCH (09:36)
[2022-01-03] MEDS: NICOTINE 21MG/24HR 1 EA TRANSDERMAL TD SCH ×2 (09:37→09:42)
[2022-01-03] MEDS: ACETAMINOPHEN TAB 650MG DOSE (2X325MG) PO PRN (10:17)
[2022-01-03] MEDS: IBUPROFEN 400MG TAB PO SCH ×2 (12:11→17:04)
[2022-01-03 16:58] VITALS: BP 143/84
[2022-01-03] MEDS: traZODone 50 MG TAB PO PRN (21:10)
[2022-01-04] MEDS: ACETAMINOPHEN TAB 650MG DOSE (2X325MG) PO PRN ×2 (03:44→20:24)
[2022-01-04 06:18] VITALS: BP 123/63
[2022-01-04 07:05] LABS: CHOLESTEROL RISK RATIO 4.409 (<5)
[2022-01-04] MEDS: AZELASTINE 137MCG NASAL SPY 30 ML (ASTELIN) SCH (08:36)
[2022-01-04] MEDS: NICOTINE 21MG/24HR 1 EA TRANSDERMAL TD SCH (08:36)
[2022-01-04] MEDS: IBUPROFEN 400MG TAB PO SCH ×3 (08:37→17:57)
[2022-01-04] MEDS: buPROPion **SR TABLET** (ZYBAN) 150MG PO SCH (08:37)
[2022-01-04] MEDS: ESCITALOPRAM OXALATE 5MG TABLET (LEXAPRO) PO SCH (08:37)
[2022-01-04 17:00] VITALS: BP 113/70
[2022-01-04] MEDS: traZODone 50 MG TAB PO PRN (22:30)
[2022-01-05] MEDS: CALCIUM CARBONATE 500 MG CHEW U/D PO PRN (04:54)
[2022-01-05 06:32] VITALS: BP 127/71
[2022-01-05] MEDS: IBUPROFEN 400MG TAB PO SCH ×3 (08:00→18:05)
[2022-01-05] MEDS: ACETAMINOPHEN TAB 650MG DOSE (2X325MG) PO PRN ×2 (09:06→22:05)
[2022-01-05] MEDS: ESCITALOPRAM OXALATE 5MG TABLET (LEXAPRO) PO SCH (09:07)
[2022-01-05] MEDS: buPROPion **SR TABLET** (ZYBAN) 150MG PO SCH (09:07)
[2022-01-05] MEDS: AZELASTINE 137MCG NASAL SPY 30 ML (ASTELIN) SCH (09:07)
[2022-01-05] MEDS: NICOTINE 21MG/24HR 1 EA TRANSDERMAL TD SCH (09:07)
[2022-01-05 16:20] VITALS: BP 129/67
[2022-01-05] MEDS: traZODone 50 MG TAB PO PRN (22:05)
[2022-01-06] MEDS: CALCIUM CARBONATE 500 MG CHEW U/D PO PRN (06:39)
[2022-01-06 07:17] VITALS: BP 143/86
[2022-01-06] MEDS: AZELASTINE 137MCG NASAL SPY 30 ML (ASTELIN) SCH (08:22)
[2022-01-06] MEDS: buPROPion **SR TABLET** (ZYBAN) 150MG PO SCH (08:22)
[2022-01-06] MEDS: NICOTINE 21MG/24HR 1 EA TRANSDERMAL TD SCH (08:23)
[2022-01-06] MEDS: IBUPROFEN 400MG TAB PO SCH ×2 (08:24→12:33)
[2022-01-06 09:50] VITALS: BP 135/74
[2022-01-06] MEDS: ACETAMINOPHEN TAB 650MG DOSE (2X325MG) PO PRN (09:51)
[2022-01-06] MEDS ORDERED: NICO21PAT TD (11:53)
[2022-01-06] MEDS ORDERED: TRAZ-252 PO (11:53)
[2022-01-06] MEDS ORDERED: BUPR15TASR PO (11:53)
[2022-01-06] MEDS ORDERED: ABIL1TAB11 PO (11:53)
== END 2022-01-06 14:20 | disposition home or self-care (01) | DRG 753 ==
LOC: M ED 10:43 → M ED INP 14:54 → M PSY 21:25
PROVIDERS: ADMIT Student in an Organized Health Care Education/Training Program; ATTEND Student in an Organized Health Care Education/Training Program
DX: F31.60 Bipolar disorder, current episode mixed, unspecified (principal); F60.89 Other specific personality disorders; F12.988 Cannabis use, unspecified with other cannabis-induced disorder; M25.511 Pain in right shoulder; M25.521 Pain in right elbow; J45.909 Unspecified asthma, uncomplicated; F17.210 Nicotine dependence, cigarettes, uncomplicated; Z79.899 Other long term (current) drug therapy; T43.215A Adverse effect of selective serotonin and norepinephrine reuptake inhibitors, initial encounter; Z20.822 Contact with and (suspected) exposure to COVID-19; Z59.89 Other problems related to housing and economic circumstances

== ENCOUNTER 2022-01-18 12:00 | Emergency (ER) | payer OTHER, MEDICAID ==
[~2022-01-18] VITALS: Ht 162.6 cm; Wt 78.6 kg
[~2022-01-18 12:00] MED LIST changes: +ABIL1TAB11 PO; +COMMENTS; +FLUT50SP33 NARES; +LEXA1TAB2 PO; +NICO21PAT TD; +TRAZ-252 PO
[2022-01-18 14:20] LABS: HEMATOCRIT 47.9 % (42.0-52.0); HEMOGLOBIN 16.1 g/dl (13.5-17.5); MEAN CORPUSCULAR HEMOGLOBIN 33.5 pg (27.0-33.0); MEAN CORPUSCULAR HGB CONC 33.6 g/dl (32.0-36.5); MEAN CORPUSCULAR VOLUME 99.8 fl (80.0-96.0); PLATELET COUNT, AUTOMATED 331 10^3/uL (150-450); WHITE BLOOD COUNT 13.3 10^3/uL (4.0-10.0)
[2022-01-18 14:38] LABS: AMPHETAMINES LEVEL URINE NEGATIVE (NEGATIVE); BARBITURATES URINE NEGATIVE (NEGATIVE); BENZODIAZEPINES URINE NEGATIVE (NEGATIVE); CANNABINOIDS URINE POSITIVE (NEGATIVE); COCAINE METABOLITE URINE NEGATIVE (NEGATIVE); METHADONE URINE NEGATIVE (NEGATIVE); OPIATES URINE NEGATIVE (NEGATIVE); PHENCYCLIDINE URINE NEGATIVE (NEGATIVE)
[2022-01-18 14:48] LABS: ACETAMINOPHEN LEVEL < 2.0 UG/ML (10.0-30.0); ALBUMIN 3.7 GM/DL (3.2-5.2); ALT/SGPT 25 U/L (12-78); BILIRUBIN,DIRECT 0.1 MG/DL (0.0-0.2); BILIRUBIN,TOTAL 0.5 MG/DL (0.2-1.0); BLOOD UREA NITROGEN 8 MG/DL (7-18); CALCIUM LEVEL 9.1 MG/DL (8.5-10.1); CARBON DIOXIDE LEVEL 33 MEQ/L (21-32); CHLORIDE LEVEL 107 MEQ/L (98-107); ETHYL ALCOHOL (ETHANOL) < 0.003 % (0.000-0.010); GLOMERULAR FILTRATION RATE > 60.0 (>56); GLUCOSE, FASTING 93 MG/DL (70-100); POTASSIUM SERUM 4.2 MEQ/L (3.5-5.1); RSV AMPLIFICATION NEGATIVE (NEGATIVE); SALICYLATE LEVEL 3.7 MG/DL (5.0-30.0); SODIUM LEVEL 142 MEQ/L (136-145); TOTAL PROTEIN 6.5 GM/DL (6.4-8.2)
[2022-01-18] MEDS ORDERED: ABIL1TAB11 PO (17:12)
[2022-01-18] MEDS ORDERED: BUPR150T12 PO (17:13)
[2022-01-18 17:24] VITALS: BP 119/88
== END 2022-01-18 17:33 | disposition home or self-care (01) ==
LOC: M ED 12:00
DX: F43.20 Adjustment disorder, unspecified (principal); F12.20 Cannabis dependence, uncomplicated; F31.9 Bipolar disorder, unspecified; F32.A Depression, unspecified; F41.9 Anxiety disorder, unspecified; K21.9 Gastro-esophageal reflux disease without esophagitis; J30.89 Other allergic rhinitis; Z79.899 Other long term (current) drug therapy; F17.200 Nicotine dependence, unspecified, uncomplicated

== ENCOUNTER 2022-01-25 02:40 | Emergency (ER) | payer OTHER, MEDICAID ==
[~2022-01-25] VITALS: Ht 162.6 cm; Wt 78.6 kg
[2022-01-25 02:40] VITALS: BP 118/60
[~2022-01-25 02:40] MED LIST changes: +BUPR150T12 PO
== END 2022-01-25 06:25 | disposition left against medical advice (07) ==
LOC: M ED 02:40
DX: Z53.29 Procedure and treatment not carried out because of patient's decision for other reasons (principal)

== ENCOUNTER 2022-01-28 20:32 | Emergency (ER) | payer OTHER, MEDICAID ==
[~2022-01-28] VITALS: Ht 162.6 cm; Wt 77.3 kg
[2022-01-28 20:32] VITALS: BP 132/73
[2022-01-28] MEDS ORDERED: LORazepam 1 MG TAB PO ONE (21:20)
[2022-01-28 21:38] LABS: HEMATOCRIT 44.6 % (42.0-52.0); HEMOGLOBIN 15.7 g/dl (13.5-17.5); MEAN CORPUSCULAR HEMOGLOBIN 33.8 pg (27.0-33.0); MEAN CORPUSCULAR HGB CONC 35.2 g/dl (32.0-36.5); MEAN CORPUSCULAR VOLUME 95.9 fl (80.0-96.0); PLATELET COUNT, AUTOMATED 316 10^3/uL (150-450); RED BLOOD COUNT 4.65 10^6/uL (4.30-6.10); WHITE BLOOD COUNT 9.5 10^3/uL (4.0-10.0)
[2022-01-28 22:04] LABS: ACETAMINOPHEN LEVEL < 2.0 UG/ML (10.0-30.0); ALBUMIN 3.8 GM/DL (3.2-5.2); ALT/SGPT 25 U/L (12-78); BILIRUBIN,DIRECT 0.1 MG/DL (0.0-0.2); BILIRUBIN,TOTAL 0.4 MG/DL (0.2-1.0); BLOOD UREA NITROGEN 9 MG/DL (7-18); CALCIUM LEVEL 9.9 MG/DL (8.5-10.1); CARBON DIOXIDE LEVEL 27 MEQ/L (21-32); CHLORIDE LEVEL 108 MEQ/L (98-107); CREATININE FOR GFR 0.92 MG/DL (0.70-1.30); ETHYL ALCOHOL (ETHANOL) < 0.003 % (0.000-0.010); GLOMERULAR FILTRATION RATE > 60.0 (>56); GLUCOSE, FASTING 106 MG/DL (70-100); SODIUM LEVEL 141 MEQ/L (136-145); TOTAL PROTEIN 6.7 GM/DL (6.4-8.2)
== END 2022-01-29 00:02 | disposition home or self-care (01) ==
LOC: M ED 20:32
DX: F41.9 Anxiety disorder, unspecified (principal); J45.909 Unspecified asthma, uncomplicated; F32.A Depression, unspecified; G89.29 Other chronic pain; Z79.899 Other long term (current) drug therapy; F17.200 Nicotine dependence, unspecified, uncomplicated

== ENCOUNTER → 2022-05-23 | Outpatient (REF) | payer OTHER, MEDICAID ==
[2022-05-23 18:54] LABS: GC DNA AMPLIFICATION NEGATIVE (NEGATIVE)
== END ==
LOC: M LAB REF 16:00
PROVIDERS: ATTEND Nurse Practitioner Family
DX: Z11.9 Encounter for screening for infectious and parasitic diseases, unspecified (principal)

== ENCOUNTER → 2022-05-28 | Outpatient (REF) | payer OTHER, MEDICAID ==
[2022-05-28 17:56] LABS: BASO % 0.3 % (0.0-1.0); EOS # 0.1 10^3/uL (0.0-0.5); EOS % 2.2 % (0.0-3.0); HEMATOCRIT 51.1 % (42.0-52.0); HEMOGLOBIN 16.1 g/dl (13.5-17.5); LYMPH % 31.1 % (24.0-44.0); MEAN CORPUSCULAR HEMOGLOBIN 31.5 pg (27.0-33.0); MEAN CORPUSCULAR HGB CONC 31.5 g/dl (32.0-36.5); MONO # 0.5 10^3/uL (0.0-0.8); MONO % 7.4 % (2.0-8.0); NEUTROPHILS # 3.7 10^3/uL (1.5-8.5); NEUTROPHILS % 58.7 % (36.0-66.0); PLATELET COUNT, AUTOMATED 291 10^3/uL (150-450); RED BLOOD COUNT 5.11 10^6/uL (4.30-6.10); WHITE BLOOD COUNT 6.3 10^3/uL (4.0-10.0)
[2022-05-28 18:54] LABS: ALBUMIN 3.7 G/DL (3.2-5.2); ALT/SGPT 18 U/L (7.0-40); BILIRUBIN,TOTAL 0.3 MG/DL (0.3-1.2); BLOOD UREA NITROGEN 15 MG/DL (9-23); CALCIUM LEVEL 9.8 MG/DL (8.5-10.1); CARBON DIOXIDE LEVEL 29 MMOL/L (20-31); CHLORIDE LEVEL 104 MMOL/L (98-107); CHOLESTEROL LEVEL 207 MG/DL (<200); CHOLESTEROL RISK RATIO 4.31 (<5); CREATININE FOR GFR 0.97 MG/DL (0.70-1.30); GLOMERULAR FILTRATION RATE > 60.0 (>56); GLUCOSE, FASTING 100 MG/DL (60-100); LDL CHOLESTEROL 141.8 MG/DL (<100); NON-HDL-C 159 MG/DL; POTASSIUM SERUM 5.2 MMOL/L (3.5-5.1); SODIUM LEVEL 140 MMOL/L (136-145); THYROID STIMULATING HORMONE 1.632 uIU/ML (0.55-4.78); TOTAL PROTEIN 6.3 G/DL (5.7-8.2); TRIGLYCERIDES LEVEL 86 MG/DL (<150)
[2022-05-28 19:03] LABS: HEMOGLOBIN A1c 5.4 % (4.0-6.0)
== END ==
LOC: M LAB REF 16:38
PROVIDERS: ATTEND Nurse Practitioner Family
DX: Z13.228 Encounter for screening for other metabolic disorders (principal); Z11.9 Encounter for screening for infectious and parasitic diseases, unspecified

== ENCOUNTER → 2022-06-03 | Outpatient (CLI) | payer OTHER, MEDICAID | LOC: M WHC 10:58 | PROVIDERS: ATTEND Nurse Practitioner Family | DX: N63.20 Unspecified lump in the left breast, unspecified quadrant (principal) ==

== ENCOUNTER → 2022-06-30 | Outpatient (REF) | payer OTHER | LOC: M LAB REF 12:33 | PROVIDERS: ATTEND Nurse Practitioner Family | DX: Z11.9 Encounter for screening for infectious and parasitic diseases, unspecified (principal) ==

== ENCOUNTER → 2022-08-08 | Outpatient (REF) | payer OTHER, MEDICAID | LOC: M LAB REF 16:05 | PROVIDERS: ATTEND Nurse Practitioner Family | DX: E55.9 Vitamin D deficiency, unspecified (principal) ==

== ENCOUNTER → 2022-09-22 | Outpatient (REF) | payer OTHER, MEDICAID ==
[2022-09-22 15:29] LABS: CHOLESTEROL RISK RATIO 3.65 (<5); HDL CHOLESTEROL 46.2 MG/DL (>40); LDL CHOLESTEROL 102.8 MG/DL (<100); NON-HDL-C 122.8 MG/DL
== END ==
LOC: M LAB REF 11:56
PROVIDERS: ATTEND Nurse Practitioner Family
DX: E78.00 Pure hypercholesterolemia, unspecified (principal)

== ENCOUNTER 2023-03-13 17:47 | Emergency (ER) | payer MEDICAID, OTHER ==
[~2023-03-13] VITALS: Ht 162.6 cm; Wt 90.0 kg
[2023-03-13 17:48] VITALS: BP 118/68; TEMP 97.8
[2023-03-13 20:20] LABS: RSV AMPLIFICATION NEGATIVE (NEGATIVE)
[2023-03-13 21:40] VITALS: O2SAT 97
[2023-03-13] MEDS ORDERED: BENZ200C70 PO (22:04)
[2023-03-13] MEDS ORDERED: ALBU6.7H6 INH (22:04)
== END 2023-03-13 22:09 | disposition home or self-care (01) ==
LOC: M ED 17:47
DX: J20.9 Acute bronchitis, unspecified (principal); J45.909 Unspecified asthma, uncomplicated; M54.9 Dorsalgia, unspecified; F17.200 Nicotine dependence, unspecified, uncomplicated; Z79.899 Other long term (current) drug therapy; Z79.51 Long term (current) use of inhaled steroids

== ENCOUNTER 2023-04-15 14:34 | Emergency (ER) | payer MEDICAID, OTHER ==
[~2023-04-15] VITALS: Ht 162.6 cm; Wt 89.0 kg
[~2023-04-15 14:34] MED LIST changes: +ALBU6.7H6 INH; +BENZ200C70 PO
[2023-04-15] MEDS ORDERED: BRIN1TAB3 (15:14)
[2023-04-15 16:23] LABS: BASO % 0.4 % (0.0-1.0); EOS # 0.2 10^3/uL (0.0-0.5); EOS % 2.6 % (0.0-3.0); HEMATOCRIT 46.4 % (42.0-52.0); HEMOGLOBIN 15.7 g/dl (13.5-17.5); LYMPH # 3.2 10^3/uL (1.5-5.0); LYMPH % 34.5 % (24.0-44.0); MEAN CORPUSCULAR HEMOGLOBIN 31.7 pg (27.0-33.0); MEAN CORPUSCULAR HGB CONC 33.8 g/dl (32.0-36.5); MEAN CORPUSCULAR VOLUME 93.5 fl (80.0-96.0); MONO # 0.8 10^3/uL (0.0-0.8); NEUTROPHILS # 5.1 10^3/uL (1.5-8.5); NEUTROPHILS % 54.2 % (36.0-66.0); PLATELET COUNT, AUTOMATED 300 10^3/uL (150-450); RED BLOOD COUNT 4.96 10^6/uL (4.30-6.10); WHITE BLOOD COUNT 9.4 10^3/uL (4.0-10.0)
[2023-04-15 17:01] LABS: ALBUMIN 3.7 G/DL (3.2-5.2); ALKALINE PHOSPHATASE 58 U/L (46-116); ALT/SGPT 25 U/L (7.0-40); AST/SGOT 23 U/L (<34); BILIRUBIN,TOTAL 0.5 MG/DL (0.3-1.2); BLOOD UREA NITROGEN 13 MG/DL (9-23); CALCIUM LEVEL 9.3 MG/DL (8.5-10.1); CARBON DIOXIDE LEVEL 28 MMOL/L (20-31); CHLORIDE LEVEL 106 MMOL/L (98-107); CREATININE FOR GFR 0.81 MG/DL (0.70-1.30); GLOMERULAR FILTRATION RATE > 60.0 (>56); GLUCOSE, FASTING 97 MG/DL (60-100); POTASSIUM SERUM 4.4 MMOL/L (3.5-5.1); SODIUM LEVEL 139 MMOL/L (136-145); TOTAL PROTEIN 6.6 G/DL (5.7-8.2)
[2023-04-15] MEDS ORDERED: METOCLOPRAMIDE INJ 10MG/2ML VIAL IV ONE (17:55)
[2023-04-15] MEDS ORDERED: MECLIZINE 25 MG TABLET PO ONE (17:55)
[2023-04-15] MEDS ORDERED: NS 1,000 ML IV ONE (17:55)
[2023-04-15] MEDS ORDERED: MECL-86 PO (20:37)
[2023-04-15 20:44] LABS: CPK CREATINE PHOSPHOKINASE 141 U/L (46-171)
[2023-04-15 20:47] VITALS: BP 129/74; TEMP 98.2; O2SAT 98
== END 2023-04-15 20:47 | disposition home or self-care (01) ==
LOC: M ED 14:34
DX: R42 Dizziness and giddiness (principal); J45.909 Unspecified asthma, uncomplicated; K21.9 Gastro-esophageal reflux disease without esophagitis; F17.200 Nicotine dependence, unspecified, uncomplicated; Z79.51 Long term (current) use of inhaled steroids; Z79.899 Other long term (current) drug therapy
CPT/HCPCS: 70544; 70547; 70551; 71045; 80053; 82550; 82553; 85025; 93005; 96374; 99284; J2765

== ENCOUNTER → 2023-06-29 | Outpatient (REF) | payer OTHER, MEDICAID ==
[~2023-06-29] MED LIST changes: +BRIN1TAB3; +MECL-86 PO
== END ==
LOC: M LAB REF 11:44
PROVIDERS: ATTEND Family Medicine Addiction Medicine
DX: J02.9 Acute pharyngitis, unspecified (principal)

== ENCOUNTER → 2023-07-21 | Outpatient (CLI) | payer OTHER ==
[~2023-07-21] MED LIST changes: +PROHANCE 279.3MG/ML 15ML VIAL ONE; +PROHANCE 279.3MG/ML 5ML VIAL ONE
== END ==
LOC: M PLAIMG 13:46
PROVIDERS: ATTEND Nurse Practitioner Family
DX: G35 Multiple sclerosis (principal); R42 Dizziness and giddiness; R41.89 Other symptoms and signs involving cognitive functions and awareness; M21.371 Foot drop, right foot; M54.12 Radiculopathy, cervical region; M51.36 Other intervertebral disc degeneration, lumbar region
CPT/HCPCS: 70553; 72156; A9576

== ENCOUNTER → 2023-09-16 | Outpatient (CLI) | payer OTHER ==
[~2023-09-16] MED LIST changes: -PROHANCE 279.3MG/ML 15ML VIAL ONE; -PROHANCE 279.3MG/ML 5ML VIAL ONE
[2023-09-16 12:23] VITALS: TEMP 98.2
[2023-09-16 12:52] LABS: HEMATOCRIT 47.4 % (42.0-52.0); HEMOGLOBIN 16.1 g/dl (13.5-17.5); MEAN CORPUSCULAR HEMOGLOBIN 32.1 pg (27.0-33.0); MEAN CORPUSCULAR VOLUME 94.6 fl (80.0-96.0); PLATELET COUNT, AUTOMATED 297 10^3/uL (150-450); RED BLOOD COUNT 5.01 10^6/uL (4.30-6.10); WHITE BLOOD COUNT 7.5 10^3/uL (4.0-10.0)
[2023-09-16 13:05] LABS: INR 1.01
[2023-09-16 15:45] VITALS: BP 102/60; O2SAT 93
[2023-09-16 16:30] LABS: APPEARANCE, CSF CLEAR (CLEAR); COLOR, CSF COLORLESS (COLORLESS); CSF TUBE# CELL CNT TUBE 1
[2023-09-16 16:59] LABS: CSF TUBE# TP TUBE 3; TOTAL PROTEIN,CSF 47.1 MG/DL (15-45)
[2023-09-16 17:02] LABS: CSF TUBE# GLU TUBE 3
== END ==
LOC: M IRPRO 12:07
PROVIDERS: ATTEND Psychiatry & Neurology Neurology
DX: G35 Multiple sclerosis (principal)

== ENCOUNTER 2023-11-19 19:25 | Emergency (ER) | payer MEDICAID, OTHER ==
[~2023-11-19] VITALS: Ht 162.6 cm; Wt 91.9 kg
[2023-11-19 19:25] VITALS: BP 130/80; TEMP 97.6; O2SAT 95
[~2023-11-19 19:25] MED LIST changes: +FLUO-290 PO; -FLUO10CA18 PO
[2023-11-19] MEDS ORDERED: REXU1TAB3 PO (19:49)
[2023-11-19] MEDS ORDERED: TECF240C PO (19:49)
== END 2023-11-19 23:51 | disposition left against medical advice (07) ==
LOC: M ED 19:25
DX: Z53.21 Procedure and treatment not carried out due to patient leaving prior to being seen by health care provider (principal)

== ENCOUNTER → 2023-12-31 | Outpatient (REF) | payer OTHER, MEDICAID ==
[~2023-12-31] MED LIST changes: +REXU1TAB3 PO; +TECF240C PO
[2023-12-31 18:31] LABS: BASO % 0.3 % (0.0-1.0); EOS # 0.2 10^3/uL (0.0-0.5); EOS % 1.5 % (0.0-3.0); HEMATOCRIT 47.4 % (42.0-52.0); HEMOGLOBIN 16.2 g/dl (13.5-17.5); LYMPH # 2.5 10^3/uL (1.5-5.0); LYMPH % 25.1 % (24.0-44.0); MEAN CORPUSCULAR HEMOGLOBIN 32.5 pg (27.0-33.0); MEAN CORPUSCULAR HGB CONC 34.2 g/dl (32.0-36.5); MONO # 0.7 10^3/uL (0.0-0.8); NEUTROPHILS # 6.4 10^3/uL (1.5-8.5); NEUTROPHILS % 65.7 % (36.0-66.0); PLATELET COUNT, AUTOMATED 344 10^3/uL (150-450); RED BLOOD COUNT 4.99 10^6/uL (4.30-6.10); WHITE BLOOD COUNT 9.8 10^3/uL (4.0-10.0)
[2023-12-31 18:36] LABS: ERYTHROCYTE SEDIMENTATION RATE 16 mm/hr (0-20)
== END ==
LOC: M LAB REF 16:43
PROVIDERS: ATTEND Family Medicine Addiction Medicine
DX: L28.2 Other prurigo (principal)

== ENCOUNTER → 2024-02-23 | Outpatient (CLI) | payer OTHER | LOC: M RAD 13:13 | PROVIDERS: ATTEND Nurse Practitioner Family | DX: E04.1 Nontoxic single thyroid nodule (principal) ==

== ENCOUNTER → 2024-02-23 | Outpatient (REF) | payer OTHER, MEDICAID ==
[2024-02-23 14:33] LABS: FREE T4 1.17 NG/DL (0.89-1.76); THYROID STIMULATING HORMONE 1.442 uIU/ML (0.55-4.78)
== END ==
LOC: M LAB REF 12:54
PROVIDERS: ATTEND Nurse Practitioner Family
DX: E04.1 Nontoxic single thyroid nodule (principal)

== ENCOUNTER 2024-04-14 07:28 | Day surgery (SDC) | payer OTHER ==
[~2024-04-14] VITALS: Ht 162.6 cm; Wt 87.3 kg
[~2024-04-14 07:28] MED LIST changes: -BRIN1TAB3; +BRIN1TAB3 PO; +LORA-243 PO; +OMEP40CA4 PO; +PROA1AER2 IN
[2024-04-14] MEDS: NS 1,000 ML IV ONE (08:01)
[2024-04-14] MEDS ORDERED: LIDOCAINE 2% 100MG/5ML SDV (FOR ANES.) As Ordered ONE (09:29)
[2024-04-14] MEDS ORDERED: propofoL 200 MG/20 ML VIAL As Ordered ONE (09:29)
[2024-04-14 10:20] VITALS: BP 130/70; O2SAT 96
== END 2024-04-14 10:27 | disposition home or self-care (01) ==
LOC: M OPP 07:28
PROVIDERS: ATTEND Internal Medicine Gastroenterology
DX: Z12.11 Encounter for screening for malignant neoplasm of colon (principal); Z12.12 Encounter for screening for malignant neoplasm of rectum; A63.0 Anogenital (venereal) warts; D12.5 Benign neoplasm of sigmoid colon; D12.3 Benign neoplasm of transverse colon; K21.9 Gastro-esophageal reflux disease without esophagitis; E04.2 Nontoxic multinodular goiter; G35 Multiple sclerosis; J45.909 Unspecified asthma, uncomplicated; G47.30 Sleep apnea, unspecified; Z79.899 Other long term (current) drug therapy; Z79.51 Long term (current) use of inhaled steroids; F17.290 Nicotine dependence, other tobacco product, uncomplicated

== ENCOUNTER → 2024-05-27 | Outpatient (CLI) | payer OTHER ==
[~2024-05-27] MED LIST changes: -LEVO750T14 PO; +LEVO75TAB PO
[2024-05-27 15:05] LABS: HEPATITIS B SURFACE ANTIBODY NEGATIVE (POSITIVE)
[2024-05-27 15:18] LABS: HEPATITIS B SURFACE ANTIGEN NEGATIVE (NEGATIVE)
[2024-05-27 15:39] LABS: HEPATITIS C VIRUS ABY INDEX < 0.02 INDEX (<0.8)
[2024-05-28 11:42] LABS: T P ELECTROPHORESIS SO 6.5 g/dL (6.1-8.1)
[2024-05-31 08:14] LABS: ALBUMIN SPEP 3.9 g/dL (3.8-4.8); ALPHA-1-GLOBULINS SO 0.3 g/dL (0.2-0.3); ALPHA-2-GLOBULINS SO 0.7 g/dL (0.5-0.9); BETA 2 GLOBULIN 0.4 g/dL (0.2-0.5); BETA-GLOBULIN SO 0.5 g/dL (0.4-0.6); GAMMA GLOBULINS SO 0.7 g/dL (0.8-1.7)
== END ==
LOC: M LAB 12:06
PROVIDERS: ATTEND Psychiatry & Neurology Neurology
DX: G35 Multiple sclerosis (principal)

== ENCOUNTER 2024-06-12 14:41 | Emergency (ER) | payer OTHER ==
[~2024-06-12] VITALS: Ht 162.6 cm; Wt 86.9 kg
[2024-06-12] MEDS: ASPIRIN 81MG CHEW TABLET PO ONE (15:26)
[2024-06-12] MEDS: NS 1,000 ML IV ONE (15:27)
[2024-06-12 15:30] LABS: BASO % 0.4 % (0.0-1.0); EOS # 0.2 10^3/uL (0.0-0.5); HEMATOCRIT 48.4 % (42.0-52.0); HEMOGLOBIN 16.8 g/dl (13.5-17.5); LYMPH # 2.2 10^3/uL (1.5-5.0); LYMPH % 31.6 % (24.0-44.0); MEAN CORPUSCULAR HEMOGLOBIN 33.2 pg (27.0-33.0); MEAN CORPUSCULAR HGB CONC 34.7 g/dl (32.0-36.5); MEAN CORPUSCULAR VOLUME 95.7 fl (80.0-96.0); MONO # 0.5 10^3/uL (0.0-0.8); MONO % 7.4 % (2.0-8.0); NEUTROPHILS # 4.1 10^3/uL (1.5-8.5); NEUTROPHILS % 57.3 % (36.0-66.0); PLATELET COUNT, AUTOMATED 340 10^3/uL (150-450); RED BLOOD COUNT 5.06 10^6/uL (4.30-6.10); WHITE BLOOD COUNT 7.1 10^3/uL (4.0-10.0)
[2024-06-12 15:44] LABS: D-DIMER QUANT 0.4 ug/mL (<0.5); INR 0.9; PARTIAL THROMBOPLASTIN TIME 27.9 SECONDS (24.8-34.2); PROTHROMBIN TIME 12.4 SECONDS (12.5-14.5)
[2024-06-12 15:52] LABS: LIPASE 43 U/L (12-53)
[2024-06-12 15:55] LABS: ALBUMIN 3.7 G/DL (3.2-5.2); ALKALINE PHOSPHATASE 68 U/L (40-129); ALT/SGPT 20 U/L (7.0-40); AST/SGOT 13 U/L (<34); BILIRUBIN,DIRECT 0.1 MG/DL (<0.4); BILIRUBIN,TOTAL 0.4 MG/DL (0.3-1.2); BLOOD UREA NITROGEN 9 MG/DL (9-23); CALCIUM LEVEL 10.2 MG/DL (8.5-10.1); CARBON DIOXIDE LEVEL 29 MMOL/L (20-31); CHLORIDE LEVEL 102 MMOL/L (98-107); CK-MB VALUE MASS < 1.0 NG/ML (<3.6); CREATININE FOR GFR 0.89 MG/DL (0.70-1.30); GLOMERULAR FILTRATION RATE > 60.0 (>56); GLUCOSE, FASTING 93 MG/DL (60-100); MAGNESIUM LEVEL 1.8 MG/DL (1.8-2.4); POTASSIUM SERUM 4.9 MMOL/L (3.5-5.1); SODIUM LEVEL 135 MMOL/L (136-145); TOTAL PROTEIN 7.1 G/DL (5.7-8.2)
[2024-06-12 15:57] LABS: THYROID STIMULATING HORMONE 1.261 uIU/ML (0.55-4.78)
[2024-06-12 15:58] LABS: CPK CREATINE PHOSPHOKINASE 70 U/L (46-171); MB/CK RELATIVE INDEX 1.42 (< OR =4)
[2024-06-12 16:51] LABS: AMPHETAMINES LEVEL URINE NEGATIVE (NEGATIVE); BARBITURATES URINE NEGATIVE (NEGATIVE); BENZODIAZEPINES URINE NEGATIVE (NEGATIVE); CANNABINOIDS URINE NEGATIVE (NEGATIVE); COCAINE METABOLITE URINE NEGATIVE (NEGATIVE); METHADONE URINE NEGATIVE (NEGATIVE); OPIATES URINE NEGATIVE (NEGATIVE); PHENCYCLIDINE URINE NEGATIVE (NEGATIVE)
[2024-06-12 16:53] LABS: CK-MB VALUE MASS < 1.0 NG/ML (<3.6); CPK CREATINE PHOSPHOKINASE 62 U/L (46-171); MB/CK RELATIVE INDEX 1.61 (< OR =4)
[2024-06-12 17:12] VITALS: TEMP 97.8
[2024-06-12 17:31] VITALS: BP 138/72; O2SAT 95
== END 2024-06-12 17:35 | disposition home or self-care (01) ==
LOC: M ED 14:41
DX: R07.89 Other chest pain (principal); J44.9 Chronic obstructive pulmonary disease, unspecified; F17.210 Nicotine dependence, cigarettes, uncomplicated

== ENCOUNTER → 2024-06-16 | Outpatient (REF) | payer OTHER ==
[2024-06-16 13:41] LABS: CHOLESTEROL RISK RATIO 5.23 (<5); HDL CHOLESTEROL 40.3 MG/DL (>40); LDL CHOLESTEROL 139.5 MG/DL (<100); NON-HDL-C 170.7 MG/DL
[2024-06-16 13:43] LABS: PSA SCREENING 1.18 NG/ML (< 4.00)
== END ==
LOC: M LAB REF 12:54
PROVIDERS: ATTEND Nurse Practitioner Family
DX: R07.89 Other chest pain (principal); Z12.5 Encounter for screening for malignant neoplasm of prostate

== ENCOUNTER → 2024-06-17 | Outpatient (CLI) | payer OTHER ==
[~2024-06-17] MED LIST changes: +ALLO100T PO; +DULO1CAP4 PO; +FEXO60TA99 PO; +GABA-1171 PO; +NICO1DIS12 TOP; -PROA1AER2 IN; +PROA1AER2 INH
== END ==
LOC: M RAD 11:47
PROVIDERS: ATTEND Nurse Practitioner Family
DX: M25.532 Pain in left wrist (principal)

== ENCOUNTER → 2024-06-17 | Outpatient (CLI) | payer OTHER | LOC: M EKG 14:01 | PROVIDERS: ATTEND Nurse Practitioner Family | DX: R07.89 Other chest pain (principal); Z53.9 Procedure and treatment not carried out, unspecified reason ==

== ENCOUNTER 2024-06-19 15:19 | Emergency (ER) | payer OTHER ==
[~2024-06-19] VITALS: Ht 162.6 cm; Wt 88.1 kg
[2024-06-19] VITALS (8 sets, daily range): BP systolic 110–122; BP diastolic 58–76; TEMP 98.2; O2SAT 95–97
[~2024-06-19 15:19] MED LIST changes: -ALLO100T PO; -DULO1CAP4 PO; -FEXO60TA99 PO; -GABA-1171 PO; -NICO1DIS12 TOP
[2024-06-19 16:14] LABS: BASO % 0.4 % (0.0-1.0); EOS # 0.2 10^3/uL (0.0-0.5); EOS % 2.4 % (0.0-3.0); HEMATOCRIT 47.4 % (42.0-52.0); HEMOGLOBIN 16.3 g/dl (13.5-17.5); LYMPH # 3.2 10^3/uL (1.5-5.0); LYMPH % 34.7 % (24.0-44.0); MEAN CORPUSCULAR HEMOGLOBIN 32.9 pg (27.0-33.0); MEAN CORPUSCULAR HGB CONC 34.4 g/dl (32.0-36.5); MEAN CORPUSCULAR VOLUME 95.6 fl (80.0-96.0); MONO # 0.6 10^3/uL (0.0-0.8); MONO % 6.2 % (2.0-8.0); NEUTROPHILS # 5.1 10^3/uL (1.5-8.5); NEUTROPHILS % 55.9 % (36.0-66.0); PLATELET COUNT, AUTOMATED 345 10^3/uL (150-450); RED BLOOD COUNT 4.96 10^6/uL (4.30-6.10); WHITE BLOOD COUNT 9.1 10^3/uL (4.0-10.0)
[2024-06-19 16:20] LABS: INR 0.88; PARTIAL THROMBOPLASTIN TIME 26.7 SECONDS (24.8-34.2); PROTHROMBIN TIME 12.3 SECONDS (12.5-14.5)
[2024-06-19] MEDS ORDERED: PROHANCE 279.3MG/ML 5ML VIAL As Ordered ONE (17:50)
[2024-06-19] MEDS ORDERED: PROHANCE 279.3MG/ML 15ML VIAL As Ordered ONE (17:51)
[2024-06-19] MEDS ORDERED: NICO1DIS12 TOP (20:24)
[2024-06-19] MEDS ORDERED: ALLO100T PO (20:24)
[2024-06-19] MEDS ORDERED: DULO1CAP4 PO (20:24)
[2024-06-19] MEDS ORDERED: GABA-1171 PO (20:24)
[2024-06-19] MEDS ORDERED: FEXO60TA99 PO (20:24)
[2024-06-19] MEDS ORDERED: HOME MED LIST COMPLETE! XX SCH (20:35)
== END 2024-06-19 20:25 | disposition home or self-care (01) ==
LOC: M ED 15:19
DX: R20.2 Paresthesia of skin (principal); K21.9 Gastro-esophageal reflux disease without esophagitis; E78.5 Hyperlipidemia, unspecified; G47.33 Obstructive sleep apnea (adult) (pediatric); F32.A Depression, unspecified; F41.9 Anxiety disorder, unspecified; J45.909 Unspecified asthma, uncomplicated; F17.200 Nicotine dependence, unspecified, uncomplicated; F12.10 Cannabis abuse, uncomplicated; F10.10 Alcohol abuse, uncomplicated; Z91.048 Other nonmedicinal substance allergy status; Z79.52 Long term (current) use of systemic steroids; Z79.899 Other long term (current) drug therapy
CPT/HCPCS: 36415; 70450; 70553; 71045; 80047; 85025; 85610; 85730; 86850; 86900; 86901; 93005; 93041; 94760; 99285; A9576

== ENCOUNTER 2024-06-22 07:30 | Outpatient (CLI) | payer OTHER ==
[2024-06-22] VITALS (7 sets, daily range): BP systolic 98–121; BP diastolic 54–70; O2SAT 94–98
[~2024-06-22] VITALS: Ht 162.6 cm; Wt 89.0 kg
[~2024-06-22 07:30] MED LIST changes: +ALLO100T PO; +DULO1CAP4 PO; +FEXO60TA99 PO; +GABA-1171 PO; +NICO1DIS12 TOP
[2024-06-22] MEDS: diphenhydrAMINE 25MG CAP PO ONE (07:57)
[2024-06-22] MEDS: ACETAMINOPHEN 325 MG TAB PO ONE (07:57)
[2024-06-22] MEDS: methylPREDNISolone 125MG 2ML VIAL IV ONE (07:57)
[2024-06-22] MEDS: OCRELIZUMAB 300 MG in NS 250 ML IV ONE (08:43)
== END 2024-06-22 12:00 ==
LOC: M INFU 07:30
PROVIDERS: ATTEND Psychiatry & Neurology Neurology
DX: G35 Multiple sclerosis (principal)
CPT/HCPCS: 96365; 96366; 96375; J2350; J2919

== ENCOUNTER → 2024-06-23 | Outpatient (CLI) | payer OTHER | LOC: M RAD 10:44 | PROVIDERS: ATTEND Nurse Practitioner Family | DX: R42 Dizziness and giddiness (principal) ==

== ENCOUNTER 2024-07-08 08:20 | Outpatient (CLI) | payer OTHER ==
[~2024-07-08] VITALS: Ht 162.6 cm; Wt 90.9 kg
[2024-07-08 08:20] VITALS: BP 127/62; O2SAT 97
[2024-07-08] MEDS: diphenhydrAMINE 25MG CAP PO ONE (08:28)
[2024-07-08] MEDS: ACETAMINOPHEN 650 MG PO ONE (08:29)
[2024-07-08] MEDS: methylPREDNISolone 125MG 2ML VIAL IV ONE (08:29)
[2024-07-08] MEDS: OCRELIZUMAB 300 MG in NS 250 ML IV ONE (08:54)
[2024-07-08 09:30] VITALS: BP 124/62; O2SAT 95
[2024-07-08 10:00] VITALS: BP 113/61; O2SAT 95
[2024-07-08 10:30] VITALS: BP 117/60; O2SAT 93
[2024-07-08 11:00] VITALS: BP 112/59; O2SAT 95
[2024-07-08 11:45] VITALS: BP 129/60; O2SAT 94
== END 2024-07-08 11:45 ==
LOC: M INFU 08:20
PROVIDERS: ATTEND Psychiatry & Neurology Neurology
DX: G35 Multiple sclerosis (principal)
CPT/HCPCS: 96365; 96366; 96375; J2350; J2919

== ENCOUNTER → 2024-08-05 | Outpatient (REF) | payer OTHER ==
[2024-08-05 14:54] LABS: ALBUMIN 3.8 G/DL (3.2-5.2); BILIRUBIN,DIRECT 0.2 MG/DL (<0.4); BILIRUBIN,TOTAL 0.6 MG/DL (0.3-1.2); CHOLESTEROL RISK RATIO 3.77 (<5); HDL CHOLESTEROL 43.7 MG/DL (>40); LDL CHOLESTEROL 93.9 MG/DL (<100); NON-HDL-C 121.3 MG/DL; TOTAL PROTEIN 7.3 G/DL (5.7-8.2)
== END ==
LOC: M LAB REF 13:48
PROVIDERS: ATTEND Nurse Practitioner Family
DX: E78.5 Hyperlipidemia, unspecified (principal)

== ENCOUNTER → 2024-08-15 | Outpatient (CLI) | payer MEDICAID | LOC: M OUTALCOH 08:12 | PROVIDERS: ATTEND Psychiatry & Neurology Psychiatry | DX: Z72.0 Tobacco use (principal); F12.20 Cannabis dependence, uncomplicated ==

== ENCOUNTER → 2024-08-15 | Outpatient (REF) | payer OTHER | LOC: M LAB REF 16:34 | PROVIDERS: ATTEND Nurse Practitioner Family | DX: G89.29 Other chronic pain (principal) ==

== ENCOUNTER → 2024-08-15 | Outpatient (CLI) | payer OTHER | LOC: M PLAIMG 11:34 | PROVIDERS: ATTEND Psychiatry & Neurology Neurology | DX: R90.89 Other abnormal findings on diagnostic imaging of central nervous system (principal) ==

== ENCOUNTER 2024-09-02 02:40 | Emergency (ER) | payer MEDICAID, OTHER ==
[~2024-09-02] VITALS: Ht 162.6 cm; Wt 90.9 kg
[2024-09-02 05:25] VITALS: BP 148/78; TEMP 97; O2SAT 97
== END 2024-09-02 06:10 | disposition left against medical advice (07) ==
LOC: M ED 02:40
DX: Z53.21 Procedure and treatment not carried out due to patient leaving prior to being seen by health care provider (principal)

== ENCOUNTER → 2024-09-05 | Outpatient (CLI) | payer OTHER ==
[~2024-09-05] MED LIST changes: +PROHANCE 279.3MG/ML 5ML VIAL ONE
== END ==
LOC: M PLAIMG 07:19
PROVIDERS: ATTEND Psychiatry & Neurology Neurology
DX: R90.89 Other abnormal findings on diagnostic imaging of central nervous system (principal); M47.814 Spondylosis without myelopathy or radiculopathy, thoracic region

== ENCOUNTER 2025-01-25 19:29 | Emergency (ER) | payer MEDICAID, OTHER ==
[~2025-01-25 19:29] MED LIST changes: -PROHANCE 279.3MG/ML 5ML VIAL ONE
[2025-01-25 19:44] VITALS: BP 94/57; TEMP 97.8; O2SAT 97
[2025-01-25 20:27] LABS: PLATELET COUNT, AUTOMATED 294 10^3/uL (150-450)
[2025-01-25] MEDS ORDERED: MED REC CURRENTLY UNOBTAINABLE XX SCH (20:30)
[2025-01-25 20:47] LABS: AMPHETAMINES LEVEL URINE NEGATIVE (NEGATIVE); BARBITURATES URINE NEGATIVE (NEGATIVE)
[2025-01-25 20:48] LABS: BENZODIAZEPINES URINE NEGATIVE (NEGATIVE); COCAINE METABOLITE URINE NEGATIVE (NEGATIVE); METHADONE URINE NEGATIVE (NEGATIVE)
[2025-01-25 20:49] LABS: OPIATES URINE NEGATIVE (NEGATIVE); PHENCYCLIDINE URINE NEGATIVE (NEGATIVE)
[2025-01-25 20:53] LABS: ETHYL ALCOHOL (ETHANOL) < 0.003 % (0.000-0.010)
[2025-01-25 20:54] LABS: CANNABINOIDS URINE POSITIVE (NEGATIVE); SALICYLATE LEVEL < 3.0 MG/DL (<30)
[2025-01-25 20:55] LABS: ALT/SGPT 25 U/L (7.0-40); AST/SGOT 26 U/L (<34); CALCIUM LEVEL 10.0 MG/DL (8.5-10.1); CARBON DIOXIDE LEVEL 26 MMOL/L (20-31); CHLORIDE LEVEL 102 MMOL/L (98-107); CREATININE FOR GFR 1.14 MG/DL (0.70-1.30); GLOMERULAR FILTRATION RATE 76.4 (>56); POTASSIUM SERUM 3.7 MMOL/L (3.5-5.1); SODIUM LEVEL 142 MMOL/L (136-145)
== END 2025-01-25 21:48 | disposition home or self-care (01) ==
LOC: M ED 19:29
DX: F43.0 Acute stress reaction (principal); J45.909 Unspecified asthma, uncomplicated; F32.A Depression, unspecified; F41.9 Anxiety disorder, unspecified; K21.9 Gastro-esophageal reflux disease without esophagitis; G35 Multiple sclerosis; F17.200 Nicotine dependence, unspecified, uncomplicated; F12.10 Cannabis abuse, uncomplicated; Z91.048 Other nonmedicinal substance allergy status